=== PATIENT | female | born 1975 | race Caucasian/White ===

== ENCOUNTER → 2016-11-19 | Outpatient (CLI) | payer OTHER ==
[~2016-11-19] MED LIST: ACET-1138 PO; ACET-1222 PO; ASPEC81 PO; ASPI1TAB48 PO; CYCL10TA6 PO; EFF75 PO; FLUC100T4 PO; FLUO20CA36 PO; HYDR-5688 PO; HYDR200T5 PO; LEVO50TA6 PO; METO-649 PO; MISCCAP80 PO; MORP-157 PO; NXM/40 PO; ONDA8TAB6 PO; OXYC-57 PO; OXYC15TA89 PO; OXYSR10 PO; RXC5 PO; SENN-61 PO; SNK PO; SUMA100T16 PO; TOPI200T14 PO; TOPI200T6 PO
[2016-11-19 14:54] LABS: BASO % 0.4 %; BASO ABS # 0.02 K/uL (0-0.2); COMPLETE YES; EOS % 1.4 %; IG% 0.2 %; LYMPH % 26.5 %; MEAN CELL VOLUME 96.7 fL (80-100); MEAN CORPUSCULAR HEMOGLOBIN 32.3 pg (25-34); MEAN CORPUSCULAR HGB CONC 33.4 g/dl (32-36); MEAN PLATELET VOLUME 9.3 fL (7.4-10.4); MONO % 7.1 %; NEUT % 64.4 %; PLATELET COUNT 228 K/uL (130-400); RED BLOOD COUNT 3.62 M/uL (4.2-5.4); WHITE BLOOD COUNT 4.91 K/uL (4.8-10.8)
[2016-11-19 15:18] LABS: ALT/SGPT 21 U/L (12-78); AST/SGOT 13 U/L (15-37); BLOOD UREA NITROGEN 14 mg/dl (7-18); BUN/CREATININE RATIO 17.4 (10-20); CALCIUM 8.6 mg/dl (8.5-10.1); CARBON DIOXIDE 25 mmol/L (21-32); CHLORIDE 111 mmol/L (98-107); CREATININE 0.82 mg/dl (0.60-1.20); GLUCOSE 79 mg/dl (70-99); MAGNESIUM 2.3 mg/dl (1.8-2.4); POTASSIUM 4.1 mmol/L (3.5-5.1); SODIUM 142 mmol/L (136-145)
[2016-11-19 15:27] LABS: ALKALINE PHOSPHATASE 75 U/L (45-117); C-REACTIVE PROTEIN < 0.29 mg/dl (0-0.29); RHEUMATOID FACTOR < 10.0 U/mL (0-15)
[2016-11-19 16:38] LABS: LYME DISEASE AB IGG NEG (NEG); LYME DISEASE AB IGM NEG (NEG)
== END | disposition home or self-care (01) ==
LOC: C.LAB 12:57
PROVIDERS: ATTEND Family Medicine
DX: E03.4 Atrophy of thyroid (acquired) (principal); M25.50 Pain in unspecified joint; M15.0 Primary generalized (osteo)arthritis; R51 Headache

== ENCOUNTER 2016-12-16 08:51 | Inpatient (IN) | payer OTHER ==
[2016-11-19 13:25] VITALS: BMI 37.0
--- NOTE | 2016-11-19 14:07 | PAT Medication Instructions ---
Service Date Nov 19, 2016. Current Home Medication List Esomeprazole Magnesium (Nexium), 40 MG PO QAM Hydrocodone/Acetaminophen 5MG/325MG ([place] 5MG/325MG), 2 TABLETS PO BID PRN for Pain Levothyroxine Sodium (Levothyroxine Sodium), 1 TAB PO QAM Metoprolol Succinate (Toprolxl (Toprol-Xl), 200 MG PO HS Probiotic Product (Probiotic), 1 CAP PO QAM Sumatriptan Succinate (Imitrex), 100 MG PO PRN PRN for MIGRAINES Venlafaxine Hcl (Effexor), 75 MG PO QPM Medication Instructions For Your Scheduled Surgery Sumatriptan Succinate (Imitrex), 100 MG PO PRN PRN for MIGRAINES (only takes for migraines) - Hold the following medications the morning of surgery: Probiotic Product (Probiotic), 1 CAP PO QAM - Take the following medications the morning of surgery with a sip of water: Levothyroxine Sodium (Levothyroxine Sodium), 1 TAB PO QAM Esomeprazole Magnesium (Nexium), 40 MG PO QAM Hydrocodone/Acetaminophen 5MG/325MG ([place] 5MG/325MG), 2 TABLETS PO BID PRN for Pain (can take up to four hours prior to surgery if needed) - Take the following medications as scheduled the night before surgery: Venlafaxine Hcl (Effexor), 75 MG PO QPM Hydrocodone/Acetaminophen 5MG/325MG ([place] 5MG/325MG), 2 TABLETS PO BID PRN for Pain Topamax 200mg at bedtime If you have any questions please call us at [phone] or [phone] ( Laura) or [phone]
[2016-11-19 14:56] LABS: URINE APPEARANCE CLEAR (CLEAR); URINE BILIRUBIN NEG (NEG); URINE COLOR YELLOW; URINE NITRITE NEG (NEG); UROBILINOGEN NEG (NEG); ZZUR CULT IF INDIC CLEAN CATCH NO
--- NOTE | 2016-11-19 15:03 | DIAGNOSTIC IMAGING REPORT ---
CHEST 2 VIEWS ROUTINE CLINICAL HISTORY: PAT preoperative evaluation COMPARISON STUDY: 08/02/2014 FINDINGS: The bones soft tissues and hemidiaphragms are normal. The cardiomediastinal silhouette is normal. The lungs are clear. The pulmonary vasculature is normal. IMPRESSION: Negative chest. Electronically signed by: Bernard Norton M.D. 11/19/2016 3:01 PM Dictated Date/Time: 11/19/2016 3:00 PM
[2016-11-19 15:04] LABS: PROTHROMBIN TIME (PATIENT) 10.5 SECONDS (9.0-12.0)
[2016-11-19 15:20] LABS: MANUAL MICROSCOPIC REQUIRED? NO; REVIEW REQ? NO
[~2016-12-16] VITALS: Ht 167.6 cm; Wt 103.2 kg
[2016-12-16] VITALS (7 sets, daily range): BP systolic 100–114; BP diastolic 68–79; PULSE 66–78; TEMP 36.4–36.6; O2SAT 96–100; Ht 167.6 cm; Wt 103.2 kg
--- NOTE | 2016-12-16 04:28 | HISTORY & PHYSICAL EXAMINATION ---
DATE OF ADMISSION: 12/16/2016 CHIEF COMPLAINT: Left knee pain. HISTORY OF PRESENT ILLNESS: Ms. Gonzáles a 41-year-old female with left knee pain since 2016 after a fall. The patient had both medially and lateral retinacular tear as a result. She has had injections, bracing over the past year. She is unable to take anti-inflammatories due to peptic ulcer disease. She has failed conservative treatment and is scheduled for left knee replacement. PAST MEDICAL HISTORY: Migraine, thyroid disease, history of DVT in upper extremity in 2011, history of MRSA septicemia. She denies heart disease or diabetes. PAST SURGICAL HISTORY: Laparoscopic cholecystectomy, left knee arthroscopy, right knee arthroscopy, laparoscopic hysterectomy, D and C, ERCP and sphincterotomy. SOCIAL HISTORY: The patient denies alcohol or tobacco use. She lives in a ranch home. 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 FAMILY HISTORY: Negative for DVT. MEDICATIONS: Nexium 40 mg daily, Effexor XR 75 mg daily, Topamax 200 mg at bedtime, levothyroxine 75 mcg, probiotic, and hydrocodone p.r.n. ALLERGIES: SULFA AND VANCOMYCIN. REVIEW OF SYSTEMS: See HPI. Ten other systems reviewed, all negative. PHYSICAL EXAMINATION: VITAL SIGNS: Height 5 feet 5 inches, weight 225 pounds. BMI is 37. GENERAL: This is a well-developed, well-nourished female who is alert and oriented x3. Mood and affect are appropriate. HEENT: Normocephalic, atraumatic. Mucous membranes are moist and intact. NECK: Supple without lymphadenopathy. HEART: Regular rate and rhythm without murmurs, rubs or gallops. LUNGS: Clear to auscultation without wheezes or rhonchi. ABDOMEN: Soft and nontender. Bowel sounds are equal and active. EXTREMITIES: No ecchymosis, redness or warmth. She has neutral alignment. Range of motion is from 0-120 degrees with no laxity. She is neurovascularly intact with +5/5 strength. X-RAY EXAMINATION: AP and lateral views show joint space narrowing. She has large osteophyte formation. IMPRESSION: Degenerative joint disease, left knee. PLAN: The patient will be admitted for a left cruciate retaining knee replacement. We will plan on aspirin for DVT prophylaxis. The patient's PCP is Dr. Richardson in [place] and she is having outpatient physical therapy upon discharge.
[~2016-12-16 08:51] MED LIST changes: -ACET-1138 PO; -ACET-1222 PO; +ACETAMINOPHEN 500 MG TAB PO SCH; -ASPEC81 PO; -ASPI1TAB48 PO; +ATROPINE SULFATE 0.1 MG/ML 5ML SYR IV PRN; +BUPIVACAINE 0.25% 30 ML VIAL ONE; +BUPIVACAINE 0.5 % 5 MG/1 ML PF 10ML VIAL ONE; +CEFAZOLIN 2000 MG/60 ML D5W 60 ML IV SCH; -CYCL10TA6 PO; +DEXAMETHASONE 4 MG TAB PO SCH; +EpHEDrine SULFATE INJ 50 MG/ML AMP IV PRN; +FAMOTIDINE 20 MG TAB PO SCH; +FENTANYL CITRATE INJ 50 MCG/1 ML 2 ML VIAL IV PRN; -FLUC100T4 PO; -FLUO20CA36 PO; +GABAPENTIN 300 MG CAP PO SCH; -HYDR200T5 PO; +LACTATED RINGER'S 1000ML 1,000 ML IV SCH; +LACTATED RINGER'S 1000ML 500 ML IV ONE; +LACTATED RINGER'S 1000ML IV SCH; -METO-649 PO; +METOCLOPRAMIDE HCL 10 MG TAB PO SCH; -MORP-157 PO; -ONDA8TAB6 PO; +ONDANSETRON INJ 2 MG/ML 2 ML VIAL IV PRN; -OXYC-57 PO; -OXYC15TA89 PO; +OXYCODONE HCL 10 MG TABCR (OXYCONTIN) PO SCH; -OXYSR10 PO; +POLYMYXIN B SULFATE 100,000 UNITS in NSS 100ML IR SCH; +ROPIVACAINE 5MG/ML 30 ML 150 MG, BUPIVACAINE/EPINEPHR 0.5% MPF 30 ML, KETOROLAC TROMETH... INFIL SCH; -RXC5 PO; -SENN-61 PO; -SNK PO; -TOPI200T14 PO; +VANCOMYCIN INJ 400 MG in NSS 100ML IR SCH
[2016-12-16] MEDS ORDERED: HYDR200T5 PO (09:16)
[2016-12-16] MEDS ORDERED: FENTANYL CITRATE INJ 50 MCG/1 ML 2 ML VIAL ONE (09:27)
[2016-12-16] MEDS ORDERED: MIDAZOLAM HCL 1 MG/ML 2ML VIAL ONE ×2 (09:27)
--- NOTE | 2016-12-16 09:45 | History & Physical Bridge Note ---
H&P Re-Evaluation Bridge Note: I have examined the patient, reviewed the History & Physical and in the interval since the performance of the History & Physical I have noted the following changes of clinical significance: No changes noted
[2016-12-16] MEDS ORDERED: BUPIVACAINE/EPINEPHRINE 0.25% 1:200,000 30 ML VIAL ONE (10:42)
[2016-12-16] MEDS ORDERED: POVIDONE-IODINE OP SOLN 30 ML BTL ONE (10:42)
[2016-12-16] MEDS ORDERED: ORTHO JOINT ANESTHETIC ONE (10:42)
[2016-12-16] MEDS ORDERED: BACITRACIN 50000 UNIT VIAL ONE (10:43)
--- NOTE | 2016-12-16 12:46 | [facility] Post Operative Brief Note ---
Immediate Operative Summary Operative Date December 16, 2016. Pre-Operative Diagnosis Left knee - Degenerative joint disease Post-Operative Diagnosis Same Procedure(s) Performed Left knee arthroplasty Surgeon Dr Kory Reid Bottle Dealer Surgeon(s) Sundar Roth PA-C Estimated Blood Loss 5 Findings pf lat dz acl intact Specimens A. Left knee - bone and tissue Complication(s) None Disposition Recovery Room / PACU
[2016-12-16] MEDS ORDERED: SOD PHOSPHATE/SOD BIPHOSPHATE ENEMA 132 ML BTL PR PRN (13:00)
[2016-12-16] MEDS ORDERED: MAGNESIUM HYDROXIDE SUSP 30 ML UDC PO PRN (13:00)
[2016-12-16] MEDS ORDERED: METOCLOPRAMIDE HCL INJ 5 MG/ML 2 ML VIAL IV PRN (13:00)
[2016-12-16] MEDS ORDERED: ALUMINUM/MAGNESIUM/SIMETH (MAALOX MAX) 30 ML UDC PO PRN (13:00)
[2016-12-16] MEDS ORDERED: ZOLPIDEM TARTRATE 5 MG TAB PO PRN (13:00)
[2016-12-16] MEDS ORDERED: ONDANSETRON INJ 2 MG/ML 2 ML VIAL IV PRN (13:00)
[2016-12-16] MEDS ORDERED: BISACODYL 10 MG SUPP PR PRN (13:00)
[2016-12-16] MEDS ORDERED: DiphenhydrAMINE HCL 50 MG/ML VIAL IV PRN (13:00)
[2016-12-16] MEDS ORDERED: MoRPHine SULFATE 2 MG/ML CARP IV PRN (13:00)
[2016-12-16] MEDS ORDERED: DiphenhydrAMINE HCL 50 MG/ML VIAL ONE (13:05)
[2016-12-16] MEDS ORDERED: PROPOFOL IV EMULSION 10 MG/ML 20 ML VIAL IV ONE (13:05)
[2016-12-16] MEDS ORDERED: LIDOCAINE HCL 2% 2 ML VIAL (20MG/ML) ONE (13:05)
--- NOTE | 2016-12-16 14:09 | DIAGNOSTIC IMAGING REPORT ---
LEFT KNEE 2 VIEWS History: Left total knee arthroplasty. Degenerative arthritis. Postop. FINDINGS: The patient is status post a left total knee arthroplasty. The hardware is intact. No fracture or dislocation. Surgical drains are in place. IMPRESSION: Left total knee arthroplasty. No evidence for hardware complication. Electronically signed by: Jonh Linares M.D. 12/16/2016 2:08 PM Dictated Date/Time: 12/16/2016 2:07 PM
--- NOTE | 2016-12-16 14:11 | Anesthesiology Progress Note ---
Anesthesia Post Op Note Date & Time December 16, 2016 at 14:11 Vital Signs Pain Intensity: 0 Vital Signs Past 12 Hours Date Time Temp Pulse Resp B/P Pulse Ox O2 Delivery O2 Flow Rate FiO2 12/16/16 14:05 36.0 77 17 114/66 100 Nasal Cannula 2 12/16/16 13:55 79 14 115/74 100 Nasal Cannula 2 12/16/16 13:45 76 17 113/69 100 Nasal Cannula 2 12/16/16 13:35 83 17 114/65 100 Nasal Cannula 2 12/16/16 13:25 36.7 89 19 115/51 98 Nasal Cannula 2 12/16/16 09:16 36.5 66 16 110/79 100 Room Air Notes Mental Status: alert / awake / arousable, participated in evaluation Pt Amnestic to Procedure: Yes Nausea / Vomiting: adequately controlled Pain: adequately controlled Airway Patency, RR, SpO2: stable & adequate BP & HR: stable & adequate Hydration State: stable & adequate Neuraxial Anesthesia: was administered, sensory block is resolving Anesthetic Complications: no major complications apparent
[2016-12-16] MEDS: TRANEXAMIC ACID INJ 1,000 MG in SODIUM CHLORIDE 0.9% 100ML 100 ML IV SCH ×2 (15:04→15:05)
[2016-12-16] MEDS: D5W AND 1/2NSS + 20MEQ KCL 1,000 ML IV SCH (16:30)
[2016-12-16] MEDS: KETOROLAC TROMETHAMINE 30 MG/ML VIAL IV. SCH ×2 (16:31→21:26)
[2016-12-16] MEDS: OXYCODONE HCL IR 5 MG TAB (IMMEDIATE RELEASE) PO PRN (16:50)
[2016-12-16] MEDS: CLINDAMYCIN IV 600 MG in DEXTROSE 5% ADD-VANTAGE 50ML 50 ML IV SCH (18:01)
[2016-12-16] MEDS: ACETAMINOPHEN 500 MG TAB PO SCH (18:01)
[2016-12-16] MEDS: TRAMADOL HCL 50 MG TAB PO PRN (18:24)
[2016-12-16] MEDS ORDERED: TRANEXAMIC ACID INJ 1,000 MG in SODIUM CHLORIDE 0.9% 100ML 100 ML IV SCH (19:30)
[2016-12-16] MEDS: OXYCODONE HCL 10 MG TABCR (OXYCONTIN) PO SCH (20:27)
[2016-12-16] MEDS: ASPIRIN 81 MG ECTAB PO SCH (20:31)
[2016-12-16] MEDS ORDERED: TOPIRAMATE 100 MG TAB PO SCH (21:00)
[2016-12-16] MEDS ORDERED: VENLAFAXINE HCL 50 MG TAB PO SCH (21:00)
[2016-12-16] MEDS ORDERED: SENNA 8.6 MG TAB PO SCH (21:00)
[2016-12-17] MEDS: OXYCODONE HCL IR 5 MG TAB (IMMEDIATE RELEASE) PO PRN ×4 (00:14→15:24)
[2016-12-17] MEDS: ACETAMINOPHEN 500 MG TAB PO SCH ×2 (01:40→10:08)
[2016-12-17] MEDS: CLINDAMYCIN IV 600 MG in DEXTROSE 5% ADD-VANTAGE 50ML 50 ML IV SCH (01:40)
[2016-12-17] MEDS: D5W AND 1/2NSS + 20MEQ KCL 1,000 ML IV SCH ×2 (01:40→10:08)
--- NOTE | 2016-12-17 01:50 | OPERATIVE REPORT ---
DATE OF OPERATION: 12/16/2016 PREOPERATIVE DIAGNOSIS: Degenerative arthritis, left knee. POSTOPERATIVE DIAGNOSIS: Same. PROCEDURE: Left total knee using the bicruciate retaining knee system. SURGEON: Dr. Reid. ASSIGNMENT EDITOR: BETH Hernandez. ANESTHESIA: Spinal. TOURNIQUET TIME: 90 minutes at 275 mmHg. DRAINS: Hemovac x2. CULTURES: None. COMPLICATIONS: None. COMPONENTS USED: Gil \T\ Nephew Journey XR knee system: Femur size 5, tibial insert size 3 x 10 bilateral, patella size 35. NOTE: BETH Hernandez, was present and assisted throughout due to the complicated nature of this case. He helped with preparation and setup. He first assisted throughout and personally closed the capsule, subcutaneous and skin layers, and applied the postop dressing. DESCRIPTION: Following satisfactory spinal, the patient was supine. A tourniquet was placed. The lower extremity was prepared with ChloraPrep and draped sterilely. Following a surgical timeout, the tourniquet was inflated. A midline incision was made with a median parapatellar arthrotomy. The knee showed severe grade 4 changes of the patellofemoral and lateral compartments. The anterior cruciate ligament was intact. Using the patient-matched femoral block, distal femoral rotation and resection were set and completed. Extension gap was confirmed and the 4-in-1 block was used to finish preparation of the femur. Using the extramedullary alignment system, the tibial island was identified in map. The medial side was resected and the knee showed good balancing. Preparation of the lateral side was then completed including preparation of the island, the knee balanced nicely with 10 mm inserts. The patella was freehand cut and sized and tracked nicely. All trial components were removed. The capsule was prepared with the orthopedic cocktail, and after irrigation, the components were cemented using Simplex G cement. A Betadine soak was performed. After 5 minutes, the Betadine was irrigated. Two drains were placed. The arthrotomy was closed with a running suture of 0 V-Loc and reinforced with #1 Vicryl. The subcutaneous tissues with 2-0 Vicryl and the skin with a running subcuticular stitch of 3-0 V-Loc. Dermabond and a dry dressing were applied. The tourniquet was deflated. The patient was returned to her bed in stable condition. I attest to the content of the Intraoperative Record and any orders documented therein. Any exceptio ns are noted below.
[2016-12-17] MEDS: KETOROLAC TROMETHAMINE 30 MG/ML VIAL IV. SCH ×3 (03:40→15:27)
[2016-12-17 03:59] VITALS: BP 98/67; PULSE 55; TEMP 36.5; O2SAT 98
[2016-12-17 06:12] LABS: HEMATOCRIT 31.9 % (37-47); MEAN PLATELET VOLUME 9.5 fL (7.4-10.4); PLATELET COUNT 221 K/uL (130-400); RED BLOOD COUNT 3.19 M/uL (4.2-5.4); WHITE BLOOD COUNT 10.13 K/uL (4.8-10.8)
[2016-12-17 06:39] LABS: BUN/CREATININE RATIO 15.6 (10-20); CALCIUM 7.9 mg/dl (8.5-10.1); CREATININE 0.71 mg/dl (0.60-1.20)
[2016-12-17 07:50] VITALS: BP 98/64; PULSE 70; TEMP 36.6; O2SAT 99
[2016-12-17 08:03] VITALS: O2SAT 99
--- NOTE | 2016-12-17 08:15 | Anesthesiology Progress Note ---
Anesthesia Post Op Note Date & Time December 17, 2016 at 08:15 Vital Signs Pain Intensity: 2.0 Vital Signs Past 12 Hours Date Time Temp Pulse Resp B/P Pulse Ox O2 Delivery O2 Flow Rate FiO2 12/17/16 08:03 99 Room Air 12/17/16 07:50 36.6 70 20 98/64 99 Room Air 12/17/16 07:30 Room Air 12/17/16 03:59 36.5 55 15 98/67 98 Room Air 12/17/16 00:15 Room Air 12/16/16 23:11 36.6 78 15 100/68 99 Room Air Notes Mental Status: alert / awake / arousable, participated in evaluation Pt Amnestic to Procedure: Yes Nausea / Vomiting: adequately controlled Pain: adequately controlled Airway Patency, RR, SpO2: stable & adequate BP & HR: stable & adequate Hydration State: stable & adequate Neuraxial Anesthesia: sensory block resolved Anesthetic Complications: no major complications apparent
--- NOTE | 2016-12-17 08:16 | Orthopedic Progress Note ---
Orthopedic Progress Note Date of Service December 17, 2016. Subjective Post OP Day: 1 Reports: feeling well, Denies: SOB, calf pain, chest pain, light headedness, nausea / vomiting Objective calves soft nontender, N/V intact, dressing C/D/I, A&O x3, toes mobile, hemovac drainage (240/75cc) Date Time Temp Pulse Resp B/P Pulse Ox O2 Delivery O2 Flow Rate FiO2 12/17/16 08:03 99 Room Air 12/17/16 07:50 36.6 70 20 98/64 99 Room Air 12/17/16 07:30 Room Air 12/17/16 03:59 36.5 55 15 98/67 98 Room Air 12/17/16 00:15 Room Air 12/16/16 23:11 36.6 78 15 100/68 99 Room Air 12/16/16 17:27 76 16 113/73 97 Room Air 12/16/16 16:30 Room Air 12/16/16 16:30 Room Air 12/16/16 16:22 36.6 70 16 110/72 96 Room Air 12/16/16 15:36 36.5 73 16 107/72 100 Room Air 12/16/16 15:13 36.4 68 16 108/71 100 Room Air 12/16/16 14:30 36.6 114/72 100 Nasal Cannula 2.0 12/16/16 14:15 77 14 104/64 99 Nasal Cannula 2 12/16/16 14:05 36.0 77 17 114/66 100 Nasal Cannula 2 12/16/16 13:55 79 14 115/74 100 Nasal Cannula 2 12/16/16 13:45 76 17 113/69 100 Nasal Cannula 2 12/16/16 13:35 83 17 114/65 100 Nasal Cannula 2 12/16/16 13:25 36.7 89 19 115/51 98 Nasal Cannula 2 12/16/16 09:16 36.5 66 16 110/79 100 Room Air Laboratory Results 24 Hours: Test 12/17/16 05:50 Hematocrit 31.9 % Hemoglobin 10.2 g/dL Assessment & Plan Assessment: POD#1 sp left TKA- XR Inhouse Planning Pain Management: PO Tylenol, Oxy IR DVT Prophylaxis: TEDs, SCDs, ASA Discharge Planning Discharge Planning: home with oppt
[2016-12-17] MEDS ORDERED: ACET-1138 PO (08:18)
[2016-12-17] MEDS ORDERED: FLUC100T4 PO (08:18)
[2016-12-17] MEDS ORDERED: MORP-157 PO (08:18)
[2016-12-17] MEDS ORDERED: SNK PO (08:18)
[2016-12-17] MEDS ORDERED: RXC5 PO (08:18)
[2016-12-17] MEDS ORDERED: ONDA8TAB6 PO (08:18)
[2016-12-17] MEDS ORDERED: ASPEC81 PO (08:18)
--- NOTE | 2016-12-17 08:19 | Discharge Instructions ---
Discharge Instructions Date of Service December 17, 2016. Admission Reason for Admission: Left Knee Degenerative Arthritis Discharge Discharge Diagnosis / Problem: sp left TKA, cruciate retaining Discharge Goals Goal(s): Decrease discomfort, Improve function, Increase independence Activity Recommendations Activity Limitations: per Instructions/Follow-up section . Instructions / Follow-Up Instructions / Follow-Up ACTIVITY RECOMMENDATIONS: SELF CARE INSTRUCTIONS AFTER TOTAL KNEE REPLACEMENT A. You may need to continue a physical therapy program after discharge from the hospital. There are several options available to you. Your doctor will assist you in selecting the best one for you. 1. An out-patient facility 2 to 3 times a week for therapy or home therapy. 2. Continue working on all exercises taught to you in the hospital. Your goals should be to increase bending of your knee to 90 degrees and beyond and to fully straighten your knee. B. You may progress at your own pace from walking with a walker or crutches to a cane; then to no assistive devices. C. Make walking a part of your daily routine. Be up as much as comfortable with rest periods throughout the day. Rest with leg elevation is very important. Use the ice wrap frequently for the first 3-4 weeks. D. There are no restrictions on activities. You may ride in a car, shop, participate in clinical fellow and all social activities. E. Wear the long elastic stockings (SHARIF hose) 20 hours a day for 2 weeks after surgery. They can be removed several times a day for laundering and for a bath. F. You may shower, no tub baths until cleared by your doctor. SPECIAL CARE INSTRUCTIONS: VERY IMPORTANT TO READ AND REVIEW A. There are a few signs you need to watch for after you are home. Call [facility] if you notice any of the followin. Increased severe knee pain. Some pain is expected especially when you exercise. 2. Increased swelling in your leg or knee; pain or swelling of the calf muscle in either lower leg. 3. Any fluid drainage from the incision. 4. Shortness of breath or chest pain. B. Please call [facility] at if you have any concerns or questions about your operation or recovery. The doctor or his nurse will return your call promptly. C. You must take antibiotics before dental work, bladder, bowel or other surgery. Your doctor will provide you with a permanent care to carry describing this precaution. IMPORTANT: * REMEMBER TO TAKE ASPIRIN, 81 MG, TWICE DAILY FOR 4 WEEKS UNLESS OTHERWISE DIRECTED. THIS IS YOUR BLOOD THINNER. * HIGH RISK PATIENTS MAY BE PRESCRIBED A STRONGER BLOOD THINNER. THIS WILL BE PROVIDED AT DISCHARGE. * CALL IF INCREASED PAIN, REDNESS, DRAINAGE OR FEVER GREATER THAT 101. * WEAR SHARIF HOSE 20 HOURS PER DAY FOR 2 WEEKS. DERMABOND Prineo- This is a mesh tape dressing that is covered with glue. It should remain in place until the incision is properly healed, usually 10-14 days. This dressing is designed to naturally slough off. You may trim the excess mesh tape as it peels off. Incision may be briefly wet in a shower. Dry immediately by blotting with a clean, dry towel. Do not bath or swim until instructed by your doctor. Do not scratch, rub, or pick at the dressing. Do not apply any topical ointments or lotions until dressing is completely removed and/or instructed by your doctor. There may be a small piece of suture material at one end of your incision. Do not pull or trim this. If it is bothersome or catching on clothing, you may cover it with a band-aid. FOLLOW UP VISIT: If appointment is not already scheduled: Please call [facility] to make a follow-up appointment for 2 weeks after your surgery at . Current Hospital Diet Patient's current hospital diet: Regular Diet Discharge Diet Recommended Diet: Regular Diet Procedures Procedures Performed: Left knee arthroplasty by cruciate retaining Pending Studies Studies pending at discharge: no Medical Emergencies . Who to Call and When: Medical Emergencies: If at any time you feel your situation is an emergency, please call 911 immediately. . Non-Emergent Contact Non-Emergency issues call your: Surgeon . "Provider Documentation" section prepared by Elena Epperson. . VTE Core Measure Inpt VTE Proph given/why not?: Other Anticoagulation, T.E.Dennis Marcus, SCD's [place] Drug Monitoring Program Search Results: patient reviewed within database, no issues identified
[2016-12-17] MEDS ORDERED: LEVOTHYROXINE 50 MCG TAB PO SCH (08:30)
[2016-12-17] MEDS: ASPIRIN 81 MG ECTAB PO SCH (08:51)
[2016-12-17] MEDS: TRAMADOL HCL 50 MG TAB PO PRN (08:56)
[2016-12-17] MEDS: OXYCODONE HCL 10 MG TABCR (OXYCONTIN) PO SCH (08:56)
[2016-12-17] MEDS ORDERED: PANTOprazole SOD 40 MG TAB PO SCH (09:00)
[2016-12-17] MEDS ORDERED: MULTIVITAMIN TAB PO SCH (09:00)
[2016-12-17] MEDS ORDERED: LACTOBACILLUS ACIDOPHILUS (FLORANEX) TAB PO SCH (09:00)
[2016-12-17 11:36] VITALS: BP 98/67; PULSE 64; TEMP 36.6; O2SAT 100
[2016-12-17 14:55] VITALS: BP 98/62; PULSE 91; TEMP 36.6; O2SAT 96
[2016-12-17 16:56] VITALS: BP 98/62; PULSE 91; TEMP 36.6; O2SAT 96
--- NOTE | 2016-12-23 17:02 | DISCHARGE SUMMARY ---
DISCHARGE DIAGNOSIS: Degenerative joint disease left knee. SECONDARY DIAGNOSES: Migraine headaches, thyroid disease, history of DVT in the upper extremity in 2011, history of MRSA and septicemia. CONSULTS: None. COMPLICATIONS: None. PROCEDURES: Left total knee arthroplasty performed by Dr. Winston Reid on 12/16/2016. BRIEF HISTORY: As dictated in history and physical. HOSPITAL SUMMARY: The patient was admitted on the above date and had the above-noted surgery performed which she tolerated well. She remained stable during her hospital stay. Wound was benign. Calves were soft, nontender, neurovascularly intact. She had no complaints. Pain was controlled. Vital signs were stable. She was progressing well with physical therapy and it was felt that she could be discharged to home on 12/17/2016. For further review, please see chart. LAB AND X-RAY DATA: As per chart. DISCHARGE INSTRUCTIONS: The patient was discharged to home in satisfactory condition on 12/25/2016. DIET: Regular. ACTIVITY: Follow TK instruction sheets and special care instructions as noted and follow up with Dr. Kory Reid in 2 weeks. The patient to call for appointment if one has not been made for you. DISCHARGE MEDICATIONS: Acetaminophen 1000 mg p.o. q. 8 hours, aspirin 81 mg p.o. b.i.d., Diflucan 1 tab p.o. daily for 7 days, morphine sulfate 15 mg p.o. q. 12 hours, Zofran 8 mg p.o. q. 8 hours p.r.n. nausea, oxycodone 5-10 mg p.o. q. 4 hours p.r.n., senna 17.2 mg p.o. at bedtime. Resume taking Nexium 40 mg p.o. q.a.m., Plaquenil 200 mg p.o. b.i.d., levothyroxine 50 mcg p.o. q.a.m., probiotic 1 cap p.o. q.a.m., Imitrex 100 mg p.o. p.r.n. migraines, Topamax 200 mg p.o. at bedtime, Effexor 75 mg p.o. q.p.m. Stop taking [place].
== END 2016-12-17 17:55 | disposition home or self-care (01) | DRG 470 ==
LOC: ENRESERVTM → ENRESERVDT → C.ACU 08:51 → C.3E 09:05
PROVIDERS: ADMIT Orthopaedic Surgery; ATTEND Orthopaedic Surgery
PROC: 0SRD0J9 Replacement of Left Knee Joint with Synthetic Substitute, Cemented, Open Approach (ICD-10-PCS; principal; 2016-12-16 10:30)
DX: M17.12 Unilateral primary osteoarthritis, left knee (principal); R00.1 Bradycardia, unspecified; I95.89 Other hypotension; E07.9 Disorder of thyroid, unspecified; G43.909 Migraine, unspecified, not intractable, without status migrainosus; F41.9 Anxiety disorder, unspecified; F32.9 Major depressive disorder, single episode, unspecified; E66.9 Obesity, unspecified; Z68.37 Body mass index [BMI] 37.0-37.9, adult; Z86.718 Personal history of other venous thrombosis and embolism; Z86.14 Personal history of Methicillin resistant Staphylococcus aureus infection; Z79.899 Other long term (current) drug therapy; Z79.891 Long term (current) use of opiate analgesic

== ENCOUNTER → 2016-12-23 | Outpatient (CLI) | payer OTHER ==
[~2016-12-23] MED LIST changes: +ACET-1138 PO; +ACET-1222 PO; -ACETAMINOPHEN 500 MG TAB PO SCH; +ASPEC81 PO; +ASPI1TAB48 PO; -ATROPINE SULFATE 0.1 MG/ML 5ML SYR IV PRN; -BUPIVACAINE 0.25% 30 ML VIAL ONE; -BUPIVACAINE 0.5 % 5 MG/1 ML PF 10ML VIAL ONE; -CEFAZOLIN 2000 MG/60 ML D5W 60 ML IV SCH; -DEXAMETHASONE 4 MG TAB PO SCH; -EpHEDrine SULFATE INJ 50 MG/ML AMP IV PRN; -FAMOTIDINE 20 MG TAB PO SCH; -FENTANYL CITRATE INJ 50 MCG/1 ML 2 ML VIAL IV PRN; +FLUC100T4 PO; -GABAPENTIN 300 MG CAP PO SCH; -HYDR-5688 PO; +HYDR200T5 PO; -LACTATED RINGER'S 1000ML 1,000 ML IV SCH; -LACTATED RINGER'S 1000ML 500 ML IV ONE; -LACTATED RINGER'S 1000ML IV SCH; -METOCLOPRAMIDE HCL 10 MG TAB PO SCH; +MORP-157 PO; +ONDA8TAB6 PO; -ONDANSETRON INJ 2 MG/ML 2 ML VIAL IV PRN; +OXYC15TA89 PO; -OXYCODONE HCL 10 MG TABCR (OXYCONTIN) PO SCH; +OXYSR10 PO; -POLYMYXIN B SULFATE 100,000 UNITS in NSS 100ML IR SCH; -ROPIVACAINE 5MG/ML 30 ML 150 MG, BUPIVACAINE/EPINEPHR 0.5% MPF 30 ML, KETOROLAC TROMETH... INFIL SCH; +RXC5 PO; +SENN-61 PO; +SNK PO; -VANCOMYCIN INJ 400 MG in NSS 100ML IR SCH
--- NOTE | 2016-12-23 13:25 | DIAGNOSTIC IMAGING REPORT ---
ULTRASOUND LEFT VENOUS DOPP LOWER EXT UNILAT CLINICAL HISTORY: Left leg swelling COMPARISON STUDY: No previous studies for comparison. FINDINGS: Real-time and color flow Doppler imaging were performed. Flow was seen within the femoral, popliteal and calf veins with no intraluminal thrombus demonstrated. The saphenous vein is patent. IMPRESSION: No evidence of left lower extremity DVT. Electronically signed by: Domo Gomez M.D. 12/23/2016 1:24 PM Dictated Date/Time: 12/23/2016 1:23 PM
== END | disposition home or self-care (01) ==
PROVIDERS: ATTEND Orthopaedic Surgery
DX: M79.662 Pain in left lower leg (principal)

== ENCOUNTER 2016-12-24 23:10 | Inpatient (IN) | payer OTHER ==
[~2016-12-24] VITALS: Ht 167.6 cm; Wt 110.9 kg
[~2016-12-24 23:10] MED LIST changes: -ACET-1222 PO; -ASPI1TAB48 PO; -OXYC15TA89 PO; -OXYSR10 PO; -SENN-61 PO
[2016-12-24] MEDS ORDERED: ONDANSETRON INJ 2 MG/ML 2 ML VIAL IV STA (23:54)
[2016-12-24] MEDS ORDERED: FENTANYL CITRATE INJ 50 MCG/1 ML 2 ML VIAL IV STA (23:54)
--- NOTE | 2016-12-24 23:58 | EMERGENCY ROOM VISIT NOTE ---
History Report prepared by Jackie: Angie Roberts Under the Supervision of: Dr. John Mcallister D.O. First contact with patient: 23:43 Chief Complaint: LEG PAIN,LEG INJURY Stated Complaint: LEFT LEG, KNEE SWELLING/PAIN/REDNESS History of Present Illness The patient is a 41 year old female who presents to the Emergency Room with complaints of worsening left knee swelling starting 3 days ago. The patient had a left knee replacement on December [address] Reid. She was at physical therapy 5 days ago and the Hemovac accidentally came out. She reports the amount of drainage from the knee had not reduced to 100 cc at the time. She started having left leg swelling 3 days ago which has been worsening over time. She also reports worsening pain and erythema in the left lower leg. She has been taking the prescribed pain medications without relief. She denies any discharge from the surgical site. She had a Venous Doppler a few days ago which was negative. She also complains of thrush in her mouth. She was started on Nystatin today by her PCP. She denies fevers, chills, or any other complaints. Source of History: patient Onset: 3 days ago Position: knee (left) Quality: other (swelling) Timing: worsening Modifying Factors (Relieving): other (prescribed pain medications without relief) Associated Symptoms: No chills, No fevers Review of Systems See HPI for pertinent positives and negatives. A total of ten systems were reviewed and were otherwise negative. Past Medical & Surgical Surgical Problems: (1) Post-operative state Family History Cancer Diabetes mellitus FH: heart disease FHx: gallbladder disease Hypertension Social History Smoking Status: Never Smoker Drug Use: none Marital Status: Housing Status: lives with family Occupation Status: employed Current/Historical Medications Scheduled Aspirin (Aspirin Low Dose), 81 MG PO DAILY Esomeprazole Magnesium (Nexium), 40 MG PO QAM Hydroxychloroquine Sulfate (Plaquenil), 200 MG PO BID Levothyroxine Sodium (Levothyroxine Sodium), 75 MCG PO QAM Probiotic Product (Probiotic), 1 CAP PO QAM Senna (Senokot), 2 TABS PO HS Topiramate (Topamax), 1 TAB PO HS Venlafaxine Hcl (Effexor), 75 MG PO QPM Scheduled PRN Acetaminophen (Acetaminophen Extra Stren), 1,000 MG PO Q8 PRN for Pain Ondansetron Hcl (Zofran), 8 MG PO Q8 PRN for Nausea Oxycodone Hcl (Oxycontin), 5-10 MG PO Q4 PRN for Pain Sumatriptan Succinate (Imitrex), 100 MG PO PRN PRN for MIGRAINES Allergies Coded Allergies: Sulfa Drugs (Verified Allergy, Unknown, hives, 12/25/16) Vancomycin (Verified Adverse Reaction, Severe, red man syndrome, 12/25/16) Cephalexin (Unverified Adverse Reaction, Unknown, DIARRHEA, 12/25/16) Physical Exam Vital Signs Date Time Temp Pulse Resp B/P Pulse Ox O2 Delivery O2 Flow Rate FiO2 12/25/16 02:33 84 18 113/58 100 Room Air 12/25/16 00:58 82 20 109/54 98 Room Air 12/24/16 23:12 36.6 91 20 114/61 98 Room Air Physical Exam GENERAL: Awake, alert, well-appearing, in no distress HENT: Normocephalic, atraumatic. Dry mucous membranes. EYES: Normal conjunctiva. Sclera non-icteric. NECK: Supple. No nuchal rigidity. FROM. No JVD. RESPIRATORY: Clear to auscultation. CARDIAC: Regular rate, normal rhythm. Extremities warm and well perfused. Pulses equal. ABDOMEN: Soft, non-distended. No tenderness to palpation. No rebound or guarding. No masses. RECTAL: Deferred. MUSCULOSKELETAL: Chest examination reveals no tenderness. The back is symmetrical on inspection without obvious abnormality. There is no CVA tenderness to palpation. No joint edema. LOWER EXTREMITIES: Calves are equal size bilaterally and non-tender. No discoloration. left lower extremity surgical scar intact, area of erythema and tenderness to the anterior frances, neurovascularly intact distally, has range of motion with flexion at the knee. NEURO: Normal sensorium. No sensory or motor deficits noted. SKIN: No rash or jaundice noted. Medical Decision & Procedures ER Provider Diagnostic Interpretation: X-ray: Per my interpretation. KNEE X-RAY The prosthetic components are intact, slight soft tissue swelling, no obvious gas present, no fracture. US: Radiology results as stated below per my review and radiologist interpretation US VENOUS LEFT LOWER EXTREMITY No evidence of deep vein thrombosis. Edema noted within soft tissues of the calf. Left inguinal lymph nodes, likely reactive. Radiologist: Chano Nam MD Laboratory Results 12/24/16 23:43 Red Blood Count 3.06, Mean Corpuscular Volume 99.7, Mean Corpuscular Hemoglobin 32.7, Mean Corpuscular Hemoglobin Concent 32.8, Mean Platelet Volume 9.0, Neutrophils (%) (Auto) 52.0, Lymphocytes (%) (Auto) 27.4, Monocytes (%) (Auto) 15.0, Eosinophils (%) (Auto) 4.4, Basophils (%) (Auto) 0.6, Neutrophils # (Auto ) 2.71, Lymphocytes # (Auto) 1.43, Monocytes # (Auto) 0.78, Eosinophils # (Auto ) 0.23, Basophils # (Auto) 0.03 12/24/16 23:43 Test 12/24/16 23:43 12/24/16 23:55 White Blood Count 5.21 K/uL (4.8-10.8) Red Blood Count 3.06 M/uL (4.2-5.4) Hemoglobin 10.0 g/dL (12.0-16.0) Hematocrit 30.5 % (37-47) Mean Corpuscular Volume 99.7 fL (80-100) Mean Corpuscular Hemoglobin 32.7 pg (25-34) Mean Corpuscular Hemoglobin Concent 32.8 g/dl (32-36) Platelet Count 245 K/uL (130-400) Mean Platelet Volume 9.0 fL (7.4-10.4) Neutrophils (%) (Auto) 52.0 % Lymphocytes (%) (Auto) 27.4 % Monocytes (%) (Auto) 15.0 % Eosinophils (%) (Auto) 4.4 % Basophils (%) (Auto) 0.6 % Neutrophils # (Auto) 2.71 K/uL (1.4-6.5) Lymphocytes # (Auto) 1.43 K/uL (1.2-3.4) Monocytes # (Auto) 0.78 K/uL (0.11-0.59) Eosinophils # (Auto) 0.23 K/uL (0-0.5) Basophils # (Auto) 0.03 K/uL (0-0.2) RDW Standard Deviation 47.6 fL (36.4-46.3) RDW Coefficient of Variation 13.1 % (11.5-14.5) Immature Granulocyte % (Auto) 0.6 % Immature Granulocyte # (Auto) 0.03 K/uL (0.00-0.02) Erythrocyte Sedimentation Rate 51 mm/hr (0-21) Anion Gap 7.0 mmol/L (3-11) Est Creatinine Clear Calc Drug Dose 136.1 ml/min Estimated GFR () 126.5 Estimated GFR (Non- 109.1 BUN/Creatinine Ratio 21.2 (10-20) Calcium Level 8.2 mg/dl (8.5-10.1) C-Reactive Protein 5.09 mg/dl (0-0.29) Bedside Lactic Acid Venous 1.09 mmol/L (0.90-1.70) Laboratory results reviewed by me Medications Administered Medications (Trade) Dose Ordered Sig/Maru Route Start Time Stop Time Status Last Admin Dose Admin Fentanyl Citrate (Fentanyl Inj) 50 mcg NOW STAT IV 12/24/16 23:54 12/24/16 23:56 DC 12/25/16 00:00 50 MCG Ondansetron HCl (Zofran Inj) 4 mg NOW STAT IV 12/24/16 23:54 12/24/16 23:56 DC 12/24/16 23:59 4 MG Fentanyl Citrate (Fentanyl Inj) 50 mcg NOW ONCE IV 12/25/16 02:45 12/25/16 02:46 DC 12/25/16 02:46 50 MCG ED Course 2343: The patient was evaluated in room B12B. A complete history and physical exam was performed. 2354: Zofran Inj 4 mg IV, Fentanyl Inj 50 mcg IV 0245: Fentanyl Inj 50 mcg IV 0309: I discussed the patient's case with Dr. Reid, orthopedic surgeon with [facility]. 0313: Upon reexamination, the patient was resting comfortably. I discussed the test results and treatment plan with her. The patient will be evaluated for further management. Medical Decision Differential diagnosis includes but is not limited to cellulitis, localized reaction, allergic reaction, septic joint, DVT. Patient's ultrasound was negative for DVT, this case was discussed with Dr. Reid from orthopedics he will admit the patient and likely perform an arthrocentesis in the morning. I discussed the findings with the patient and the patient's friend at bedside. Patient did require opiates throughout emergency department evaluation Consults Time Called: [phone] Consulting Physician: Dr. Reid, orthopedic surgeon with [facility] Returned Call: 030 I discussed the patient's case with Dr. Reid, orthopedic surgeon with [facility]. Impression Primary Impression: Acute postoperative pain of left knee Additional Impression: Rule out septic joint Scribe Attestation The scribe's documentation has been prepared under my direction and personally reviewed by me in its entirety. I confirm that the note above accurately reflects all work, treatment, procedures, and medical decision making performed by me. Departure Information Dispostion Being Evaluated By Surgeon Kyle Martino M.D. (PCP) Patient Instructions My [facility] Problem Qualifiers
[2016-12-25 00:05] LABS: HEMATOCRIT 30.5 % (37-47); MEAN CELL VOLUME 99.7 fL (80-100); MEAN CORPUSCULAR HEMOGLOBIN 32.7 pg (25-34); MEAN CORPUSCULAR HGB CONC 32.8 g/dl (32-36); PLATELET COUNT 245 K/uL (130-400); RED BLOOD COUNT 3.06 M/uL (4.2-5.4); WHITE BLOOD COUNT 5.21 K/uL (4.8-10.8)
[2016-12-25 00:28] LABS: BASO % 0.6 %; BASO ABS # 0.03 K/uL (0-0.2); COMPLETE YES; EOS % 4.4 %; IG% 0.6 %; LYMPH % 27.4 %; LYMPH ABS # 1.43 K/uL (1.2-3.4)
[2016-12-25] MEDS ORDERED: ACET-1222 PO (00:28)
[2016-12-25 00:30] LABS: BUN/CREATININE RATIO 21.2 (10-20); C-REACTIVE PROTEIN 5.09 mg/dl (0-0.29); CALCIUM 8.2 mg/dl (8.5-10.1); CREATININE 0.7 mg/dl (0.60-1.20); POTASSIUM 3.9 mmol/L (3.5-5.1)
[2016-12-25] MEDS ORDERED: ASPI1TAB48 PO ×2 (00:30→08:32)
[2016-12-25] MEDS ORDERED: ONDA8TAB6 PO (00:32)
[2016-12-25] MEDS ORDERED: OXYC15TA89 PO (00:34)
[2016-12-25] MEDS ORDERED: SENN-61 PO (00:35)
[2016-12-25 02:33] VITALS: O2SAT 100
[2016-12-25] MEDS ORDERED: FENTANYL CITRATE INJ 50 MCG/1 ML 2 ML VIAL IV ONE (02:45)
[2016-12-25] MEDS ORDERED: NURSING VERBAL MED ORDER ONE (03:30)
[2016-12-25 04:10] VITALS: BP 120/81; PULSE 86; TEMP 36.8; O2SAT 100
[2016-12-25] MEDS ORDERED: SUMATRIPTAN SUCC TAB 100 MG TAB PO PRN (05:00)
[2016-12-25] MEDS ORDERED: ACETAMINOPHEN 500 MG TAB PO PRN (05:00)
[2016-12-25] MEDS ORDERED: ONDANSETRON 8 MG TAB PO PRN (05:00)
[2016-12-25 05:03] VITALS: BP 120/81; PULSE 86; TEMP 36.8; Ht 167.6 cm; Wt 110.9 kg
[2016-12-25] MEDS: OXYCODONE HCL IR 5 MG TAB (IMMEDIATE RELEASE) PO PRN ×2 (05:32→10:22)
[2016-12-25] MEDS ORDERED: LEVOTHYROXINE 75 MCG TAB PO SCH (06:00)
--- NOTE | 2016-12-25 06:42 | DIAGNOSTIC IMAGING REPORT ---
LEFT KNEE 3 VIEWS CLINICAL HISTORY: pain COMPARISON: None. DISCUSSION: Status post total joint replacement. Small joint effusion. Moderate generalized soft tissue edema. IMPRESSION: Total joint replacement. Small joint effusion. Nonspecific soft tissue edema Electronically signed by: Bernard Norton M.D. 12/25/2016 6:41 AM Dictated Date/Time: 12/25/2016 6:40 AM
--- NOTE | 2016-12-25 07:01 | DIAGNOSTIC IMAGING REPORT ---
LEFT LOWER EXTREMITY VENOUS DOPPLER HISTORY: Left leg pain post sx COMPARISON STUDY: Venous Doppler 12/23/2016 FINDINGS: There is normal compressibility, flow, and augmentation within the left lower extremity deep venous system. A 5.2 x 2.1 x 0.8 cm left inguinal lymph node which is likely reactive. IMPRESSION: No DVT within the left lower extremity. Electronically signed by: Jonh Linares M.D. 12/25/2016 7:00 AM Dictated Date/Time: 12/25/2016 6:59 AM
[2016-12-25 07:12] VITALS: BP 113/75; PULSE 86; TEMP 36.9; O2SAT 97
[2016-12-25] MEDS ORDERED: RXC5 PO (08:32)
[2016-12-25] MEDS ORDERED: OXYSR10 PO (08:32)
--- NOTE | 2016-12-25 08:34 | Discharge Instructions ---
Discharge Instructions Date of Service December 25, 2016. Admission Reason for Admission: Cellulitis Left Knee, S/P Knee Replacement Discharge Discharge Diagnosis / Problem: SP LEFT CRUCIATE RETAINING TKA Discharge Goals Goal(s): Decrease discomfort, Improve function, Increase independence Activity Recommendations Activity Limitations: per Instructions/Follow-up section . Instructions / Follow-Up Instructions / Follow-Up ACTIVITY RECOMMENDATIONS: SELF CARE INSTRUCTIONS AFTER TOTAL KNEE REPLACEMENT A. You may need to continue a physical therapy program after discharge from the hospital. There are several options available to you. Your doctor will assist you in selecting the best one for you. 1. An out-patient facility 2 to 3 times a week for therapy or home therapy. 2. Continue working on all exercises taught to you in the hospital. Your goals should be to increase bending of your knee to 90 degrees and beyond and to fully straighten your knee. B. You may progress at your own pace from walking with a walker or crutches to a cane; then to no assistive devices. C. Make walking a part of your daily routine. Be up as much as comfortable with rest periods throughout the day. Rest with leg elevation is very important. Use the ice wrap frequently for the first 3-4 weeks. D. There are no restrictions on activities. 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 E. Wear the long elastic stockings (SHARIF hose) 20 hours a day for 2 weeks after surgery. They can be removed several times a day for laundering and for a bath. F. You may shower, no tub baths until cleared by your doctor. SPECIAL CARE INSTRUCTIONS: VERY IMPORTANT TO READ AND REVIEW A. There are a few signs you need to watch for after you are home. Call [facility] if you notice any of the followin. Increased severe knee pain. Some pain is expected especially when you exercise. 2. Increased swelling in your leg or knee; pain or swelling of the calf muscle in either lower leg. 3. Any fluid drainage from the incision. 4. Shortness of breath or chest pain. B. Please call [facility] at if you have any concerns or questions about your operation or recovery. The doctor or his nurse will return your call promptly. C. You must take antibiotics before dental work, bladder, bowel or other surgery. Your doctor will provide you with a permanent care to carry describing this precaution. IMPORTANT: * REMEMBER TO TAKE ASPIRIN, 81 MG, TWICE DAILY FOR 4 WEEKS UNLESS OTHERWISE DIRECTED. THIS IS YOUR BLOOD THINNER. * HIGH RISK PATIENTS MAY BE PRESCRIBED A STRONGER BLOOD THINNER. THIS WILL BE PROVIDED AT DISCHARGE. * CALL IF INCREASED PAIN, REDNESS, DRAINAGE OR FEVER GREATER THAT 101. * WEAR SHARIF HOSE 20 HOURS PER DAY FOR 2 WEEKS. *RECOMMEND STRICT ELEVATION OF THE LLE THROUGH THE WEEKEND *CONTINUE TO USE ICE REGULARLY *MAY RESUME PT ON FRIDAY, GENTLE ROM, EDEMA CONTROL CALL IF INCREASED PAIN, SWELLING, REDNESS, FEVER. [phone] FOLLOW UP VISIT: If appointment is not already scheduled: (KEEP ORIGINAL 2 WEEK POST OP) Please call [facility] to make a follow-up appointment for 1 weeks after your surgery at . Current Hospital Diet Patient's current hospital diet: Regular Diet Discharge Diet Recommended Diet: Regular Diet Pending Studies Studies pending at discharge: no Medical Emergencies . Who to Call and When: Medical Emergencies: If at any time you feel your situation is an emergency, please call 911 immediately. . Non-Emergent Contact Non-Emergency issues call your: Surgeon . "Provider Documentation" section prepared by Elena Epperson. . VTE Core Measure Inpt VTE Proph given/why not?: Other Anticoagulation, T.ECarlos Marcus, SCD's [place] Drug Monitoring Program Search Results: patient reviewed within database, no issues identified
[2016-12-25] MEDS ORDERED: OXYCODONE HCL 10 MG TABCR (OXYCONTIN) PO ONE (08:45)
--- NOTE | 2016-12-25 08:49 | HISTORY & PHYSICAL EXAMINATION ---
DATE OF ADMISSION: 12/25/2016 CHIEF COMPLAINT: Left calf pain and swelling status post left knee replacement. HISTORY OF PRESENT ILLNESS: Ms. Gonzáles is a 41-year-old female who underwent an uncomplicated cruciate retaining left knee replacement on 12/16/[address] Reid. The patient was doing well initially. Starting on Friday she was having increased swelling over the knee. She called the office Friday and was sent for a Doppler ultrasound due to her previous history of DVT. Doppler was negative for DVT. The patient noticed some increased redness and warmth over the medial aspect of her proximal calf yesterday and presented to the Emergency Room for evaluation. The patient denies fever, chills, or increased knee pain. She was at 95 degrees of flexion at her most recent physical therapy session. She is taking Roxicodone for pain control. She was unable to tolerate the MS Contin a she is allergic to sulfa and is unable to take Celebrex. She is taking aspirin b.i.d. for DVT prophylaxis. PAST MEDICAL HISTORY: Migraines, thyroid disease, history of DVT upper extremity, history of MRSA. She denies heart disease or diabetes. PAST SURGICAL HISTORY: Laparoscopic cholecystectomy, left knee arthroscopy, right knee arthroscopy, laparoscopic hysterectomy, D\T\C, ERCP, sphincterotomy and left cruciate retaining knee replacement. SOCIAL HISTORY: The patient denies alcohol or tobacco use. She lives in a ranch home. 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 FAMILY HISTORY: Negative for DVT. MEDICATIONS: Nexium 40 mg daily, Effexor XR 75 mg daily, Topamax 200 mg, levothyroxine 75 mcg, probiotic, hydrocodone p.r.n. ALLERGIES: SULFA AND VANCOMYCIN. REVIEW OF SYSTEMS: See HPI. Ten other systems reviewed, all negative. PHYSICAL EXAMINATION: VITAL SIGNS: Height 5 foot 5, weight 225 pounds, BMI 37. GENERAL: This is a well-developed, well-nourished female who is alert and oriented x3. Mood and affect are appropriate. HEAD, EYES, EARS, NOSE, AND THROAT: Normocephalic, atraumatic. Mucous membranes are moist and intact. NECK: Supple without lymphadenopathy. HEART: Regular rate and rhythm without murmurs, rubs or gallops. LUNGS: Clear to auscultation without wheezes or rhonchi. ABDOMEN: Soft and nontender. Bowel sounds are equal and active. EXTREMITIES: No ecchymosis, redness are noted at this time. She has a midline incision that is well healed. Her Prineo dressing has come off. She has no opening. No wound drainage at this time. She has some mild warmth to touch, which would be consistent with her postoperative status. She has some mild distal edema, no pitting. Calf is currently soft and nontender. She is neurovascularly intact with +5/5 strength. She has full extension and can flex to about 90 degrees without pain. X-RAY EXAMINATION: AP and lateral views show a cruciate retaining knee replacement in adequate position. X-rays are not a true AP and lateral. IMPRESSION: Painful left knee replacement. PLAN: The patient is currently dos not have any evidence of cellulitis or septic joint. She is afebrile. She has no erythema. She has no pain with range of motion. I do not feel that her knee needs to be aspirated at this time. We are going to discharge her to home with some OxyContin instead of her MS Contin to see if she can tolerate this better. I recommended that she strictly elevate her lower extremity over the next few days. She should go to therapy on Friday for edema control. If she has any increased pain, fever, nausea, redness or an obvious increase in swelling she is to call our office. She should maintain her regular followup next week for a wound check.
[2016-12-25] MEDS ORDERED: ASPIRIN 81 MG ECTAB PO SCH (09:00)
[2016-12-25] MEDS ORDERED: HYDROXYCHLOROQUINE SULFATE 200 MG TAB PO SCH (09:00)
[2016-12-25] MEDS ORDERED: PANTOprazole SOD 40 MG TAB PO SCH (09:00)
[2016-12-25] MEDS ORDERED: LACTOBACILLUS ACIDOPHILUS (FLORANEX) TAB PO SCH (09:00)
[2016-12-25 09:37] VITALS: BP 113/75; PULSE 86; TEMP 36.9; O2SAT 97
[2016-12-25] MEDS ORDERED: TOPIRAMATE 100 MG TAB PO SCH (21:00)
[2016-12-25] MEDS ORDERED: VENLAFAXINE HCL XR 75 MG CAPXR PO SCH (21:00)
[2016-12-25] MEDS ORDERED: VENLAFAXINE HCL 37.5 MG TAB PO SCH (21:00)
[2016-12-25] MEDS ORDERED: DOCUSATE SODIUM/SENNA 50/8.6MG TAB PO SCH (21:00)
--- NOTE | 2016-12-30 15:09 | DISCHARGE SUMMARY ---
DISCHARGE DIAGNOSIS: Cellulitis, status post left knee replacement. SECONDARY DIAGNOSIS: None. CONSULTS: None. COMPLICATIONS: None. PROCEDURE: None. BRIEF HISTORY: Please see previously dictated history and physical. HOSPITAL SUMMARY: The patient was admitted on the above day after she developed increased redness and swelling to her left knee replacement. The patient was admitted for further evaluation and possible aspiration. The following morning when the patient was evaluated she had little to no erythema to the knee. Her incision was well healed. She had no drainage. Her Prineo dressing was removed. She had mild warmth to touch that was consistent with her postoperative status. She had mild distal edema. Calf was soft and nontender. She was neurovascularly intact. She had full extension. The patient was not tolerating her MS Contin at home. She was discharged to home on OxyContin; hopefully she will tolerate this better. She was discharged to home later that day in stable condition. For further review please see the chart. Lab, x-ray data and discharge instructions as per chart.
== END 2016-12-25 10:20 | disposition home or self-care (01) | DRG 561 ==
LOC: ENRESERVDT → ENRESERVTM → C.EDB 23:11 → C.MSW 12-25 03:33
PROVIDERS: ADMIT Orthopaedic Surgery; ATTEND Orthopaedic Surgery
DX: T84.84XA Pain due to internal orthopedic prosthetic devices, implants and grafts, initial encounter (principal); Z96.652 Presence of left artificial knee joint; G43.909 Migraine, unspecified, not intractable, without status migrainosus; E07.9 Disorder of thyroid, unspecified; Z79.899 Other long term (current) drug therapy; Z79.82 Long term (current) use of aspirin; Z86.718 Personal history of other venous thrombosis and embolism; Z86.14 Personal history of Methicillin resistant Staphylococcus aureus infection; Y83.1 Surgical operation with implant of artificial internal device as the cause of abnormal reaction of the patient, or of later complication, without mention of misadventure at the time of the procedure

== ENCOUNTER → 2017-08-06 | Day surgery (SDC) | payer OTHER ==
[2017-08-05 12:13] VITALS: Ht 167.6 cm; Wt 113.6 kg
[~2017-08-06] VITALS: Ht 167.6 cm; Wt 113.6 kg
[~2017-08-06] MED LIST changes: -ACET-1138 PO; +ACET-1222 PO; +AMOX875T PO; -ASPEC81 PO; +DOXY-300 PO; -EFF75 PO; +EFFSR75 PO; +FIDA1TAB PO; +FLUO20CA36 PO; +HYDR-4079 PO; -LEVO50TA6 PO; +LEVO75TA PO; +LEVO75TA5 PO; +LIDOCAINE HCL 2% 2 ML VIAL (20MG/ML) ONE; +LISD40CA PO; -MORP-157 PO; +MTR500 PO; +ONDA-170 PO; +ONDA-63 PO; -ONDA8TAB6 PO; +OSEL75CA16 PO; +PHEN37.5 PO; +PLQ200 PO; +PRD/1 PO; +PROM25TA16 PO; +PROPOFOL IV EMULSION 10 MG/ML 20 ML VIAL IV ONE; +RIZA1TAB7 PO; -RXC5 PO; -SNK PO; +SODIUM CHLORIDE 0.9% 500ML 500 ML IV ONE; +TOPI200T20 PO; +VENL150C2 PO; +ZVR400 PO
--- NOTE | 2017-08-06 13:58 | Endo History and Physical ---
History & Physical Date of Service: Aug 06, 2017. Chief Complaint: reflux and chronic diarrhea Referring Physician: Dr. Kyle Richardson History of Present Illness Chronic diarrhea; persistent heartburn Past Medical History Arthritis, Gynecological Problems, Depression Past Surgical History Hx Cardiac Surgery: No Hx Internal Defibrillator: No Hx Abdominal Surgery: Yes (shayna, ERCP x2, D&C, D&E, surg x2 for endometriosis , faheem) Hx Post-Op Nausea and Vomiting: No Hx Cancer Surgery: No Hx Thoracic Surgery: No Hx Orthopedic: Yes (L TKA, ) Hx Urinary Tract Surgery: No Family History None Social History Smoking Status: Never Smoker Hx Substance Use: No Hx Alcohol Use: No Allergies Coded Allergies: Sulfa Drugs (Verified Allergy, Unknown, hives, 08/05/17) Vancomycin (Verified Adverse Reaction, Severe, red man syndrome, 08/05/17) Cephalexin (Verified Adverse Reaction, Unknown, DIARRHEA, 08/06/17) Current Medications Reported Home Medications Medications Dose Route/Sig Max Daily Dose Days Date Category Dose Instructions Prednisone 1 Mg Tab 2 Mg PO QAM 08/05/17 Reported on tappering dose - rhuematoglist Effexor Xr (Venlafaxine Hcl) 150 Mg Cap 1 Cap PO QAM 08/05/17 Reported Synthroid (Levothyroxine Sodium) 75 Mcg Tab 75 Mcg PO QAM 08/05/17 Reported Zofran (Ondansetron HCl) 8 Mg Tab 8 Mg PO Q8 PRN 12/25/16 Reported Acetaminophen Extra Stren (Acetaminophen) 500 Mg Tab 1,000 Mg PO Q8 PRN 12/25/16 Reported Plaquenil (Hydroxychloroquine Sulfate) 200 Mg Tab 200 Mg PO BID 12/16/16 Reported Topamax (Topiramate) 200 Mg Tab 300 Mg PO HS 11/19/16 Reported Imitrex (Sumatriptan Succinate) 100 Mg Tab 100 Mg PO PRN PRN 11/19/16 Reported Probiotic (Probiotic Product) 1 Cap Cap 1 Cap PO QAM 11/19/16 Reported Nexium (Esomeprazole Magnesium) 40 Mg Capcr 40 Mg PO QAM 07/25/15 Reported Vital Signs Weight (Kilograms): 113.64 Height (Feet): 5 Height (Inches): 6 Date Time Temp Pulse Resp B/P (MAP) Pulse Ox O2 Delivery O2 Flow Rate FiO2 08/06/17 13:20 36.5 78 20 137/78 (97) 98 Room Air Physical Exam General Appearance: WD/WN, no apparent distress Respiratory/Chest: Auscultation: breath sounds normal, no wheezing Cardiovascular: Heart Auscultation: RRR Abdomen: Inspection & Palpation: soft, no tenderness, guarding & rebound Assessment and Plan Cleared for EGD and colonoscopy.
--- NOTE | 2017-08-06 14:22 | GI REPORT ---
Procedure Date: 08/06/2017 1:30 PM Procedure: Upper GI endoscopy Indications: Heartburn, Diarrhea Medicines: Monitored Anesthesia Care Complications: No immediate complications. Estimated blood loss: None. Estimated Blood Loss: Estimated blood loss: none. Procedure: Pre-Anesthesia Assessment: - Prior to the procedure, a History and Physical was performed, and patient medications, allergies and sensitivities were reviewed. The patient's tolerance of previous anesthesia was reviewed. - ASA Grade Assessment: II - A patient with mild systemic disease. After obtaining informed consent, the endoscope was passed under direct vision. Throughout the procedure, the patient's blood pressure, pulse, and oxygen saturations were monitored continuously. The Scope was introduced through the mouth, and advanced to the third part of the duodenum. Small bowel enteroscopy was deemed necessary. The upper GI endoscopy was accomplished with ease. The patient tolerated the procedure well. Findings: Punctate white exudate consistent with Mikayla esophagitis with no bleeding was found in the middle and upper third of the esophagus. Biopsies were taken with a cold forceps for histology. Cells for cytology were obtained by brushing. The Z-line was regular and was found 39 cm from the incisors. Biopsies were taken with a cold forceps for histology. A small sliding hiatal hernia was present. A small amount of food (residue) was found on the greater curvature of the stomach. Normal mucosa was found in the entire examined stomach. Biopsies were taken with a cold forceps for Helicobacter pylori testing. The examined duodenum was normal. Biopsies for histology were taken with a cold forceps for evaluation of celiac disease. Verification of patient identification for the specimens was done by the physician and nurse using the patient's name, date and medical record number. Impression: - Mikayla candidiasis esophagitis. Biopsied. Cells for cytology obtained. - Z-line regular, 39 cm from the incisors. Biopsied. - Small sliding hiatal hernia. - A small amount of food (residue) in the stomach. - Normal mucosa was found in the entire stomach. Biopsied. - Normal examined duodenum. Biopsied. Recommendation: - Perform a colonoscopy today. Teo Oliver M.D. Teo Oliver MD 08/06/2017 2:22:09 PM This report has been signed electronically. Note Initiated On: 08/06/2017 1:30 PM I attest to the content of the Intraoperative Record and orders documented therein, exceptions below
--- NOTE | 2017-08-06 14:45 | GI REPORT ---
Procedure Date: 08/06/2017 2:15 PM Procedure: Colonoscopy Indications: Chronic diarrhea Medicines: Monitored Anesthesia Care Complications: No immediate complications. Estimated blood loss: None. Estimated Blood Loss: Estimated blood loss: none. Procedure: Pre-Anesthesia Assessment: - Prior to the procedure, a History and Physical was performed, and patient medications, allergies and sensitivities were reviewed. The patient's tolerance of previous anesthesia was reviewed. - ASA Grade Assessment: II - A patient with mild systemic disease. After I obtained informed consent, the scope was passed under direct vision. Throughout the procedure, the patient's blood pressure, pulse, and oxygen saturations were monitored continuously. The Scope was introduced through the anus and advanced to the terminal ileum, with identification of the appendiceal orifice and IC valve. The colonoscopy was performed without difficulty. The patient tolerated the procedure well. The quality of the bowel preparation was fair. The bowel preparation used was split dose MIralax. Findings: Normal mucosa was found in the entire colon. Biopsies for histology were taken with a cold forceps from the entire colon for evaluation of microscopic colitis. Fluid aspiration was performed through the scope suction channel. The amount of fluid collected was 10 mL. Sample(s) were sent for bacterial cultures, Clostridium difficile and ova and parasites. The terminal ileum appeared normal. Impression: - Preparation of the colon was fair. - Normal mucosa in the entire examined colon. Biopsied. Fluid aspiration performed. - The examined portion of the ileum was normal. Recommendation: - Tapering course of fidaxomycin - Discharge patient to home (with escort). Teo Oliver M.D. Teo Oliver MD 08/06/2017 2:44:52 PM This report has been signed electronically. Note Initiated On: 08/06/2017 2:15 PM I attest to the content of the Intraoperative Record and orders documented therein, exceptions below
--- NOTE | 2017-08-06 14:51 | Anesthesiology Progress Note ---
Anesthesia Post Op Note Date & Time Aug 06, 2017 at 14:51 Vital Signs Pain Intensity: 2 Vital Signs Past 12 Hours Date Time Temp Pulse Resp B/P (MAP) Pulse Ox O2 Delivery O2 Flow Rate FiO2 08/06/17 13:20 36.5 78 20 137/78 (97) 98 Room Air Notes Mental Status: alert / awake / arousable, participated in evaluation Pt Amnestic to Procedure: Yes Nausea / Vomiting: adequately controlled Pain: adequately controlled Airway Patency, RR, SpO2: stable & adequate BP & HR: stable & adequate Hydration State: stable & adequate Anesthetic Complications: no major complications apparent
--- NOTE | 2017-08-06 14:54 | Discharge Instructions ---
Endoscopy Patient Instructions Date / Procedure(s) Performed Aug 06, 2017. Colonoscopy, EGD Allergy Information Coded Allergies: Sulfa Drugs (Verified Allergy, Unknown, hives, 08/05/17) Vancomycin (Verified Adverse Reaction, Severe, red man syndrome, 08/05/17) Cephalexin (Verified Adverse Reaction, Unknown, DIARRHEA, 08/06/17) Discharge Date / Findings Aug 06, 2017. Mikayla esophagitis, Normal mucosa colon, biopsies and cultures pending. Medication Instructions Restart Stopped Medication(s): Restart all medications today. Take fidaxomycin one every other day for ten days, then every third day for three weeks. Take probiotic (Florastor, Saccromyces boulardii) twice a day for two months. Provider Instructions Activity Restrictions - No exercising or heavy lifting for 24 hours. - Do not drink alcohol the day of the procedure. - Do not drive a car or operate machinery until the day after the procedure. - Do not make any important decisions or sign important papers in 24 hours after the procedure. Following Day: - Return to full activity which may include returning to work/school. Diet Start your diet with liquids and light foods (jello, soup, juice, toast). Then eat your usual diet if not nauseated. Treatment For Common After Affects For mild abdominal pain, bloating, or excessive gas: - Rest - Eat lightly - Lie on right side Follow-Up Information Follow-up with Dr. Kyle Richardson as scheduled Anesthesia Information What You Should Know You have had a procedure that required some medicine to reduce anxiety and discomfort. This treatment is called moderate sedation. After receiving the treatment, you may be sleepy, but you will be able to breathe on your own. The effects of the treatment may last for several hours. Follow these instructions along with Activity/Diet recommendations noted above: * Do NOT do anything where dizziness or clumsiness would be dangerous. * Rest quietly at home today, then you can be up and about tomorrow. * Have a responsible person stay with you the rest of today. * You may have had an I.V. today. If so, you may take the dressing off later today. Recommendations Call your doctor if: * Trouble breathing * Continuous vomiting for more than 24 hours * Temperature above 101 degrees * Severe abdominal pain or bloating * Pain not relieved by pain medicine ordered * There is increased drainage or redness from any incision * A large amount of rectal bleeding greater than 2-3 tablespoons. (If you had a polyp/s removed or have hemorrhoids, a small amount of blood - from the rectum is to be expected.) * You have any unanswered questions or concerns. IN THE EVENT OF A SERIOUS EMERGENCY, GO TO THE NEAREST EMERGENCY ROOM Your discharge instructions were prepared by provider Teo Oliver. Patient Instructions Signature Page Brenda Gonzáles Patient (or Guardian) Signature/Date: I have read and understand the instructions given to me by my caregivers. Caregiver/RN/Doctor Signature/Date: The above-named patient and/or guardian has received patient instructions on this date. + Original Patient Signature Page (only) stays with chart. Please make copy for patient.
[2017-08-06 15:12] VITALS: BP 114/76; PULSE 72; O2SAT 99
== END | disposition home or self-care (01) ==
LOC: C.GI 13:01
PROVIDERS: ATTEND Internal Medicine Gastroenterology
DX: K52.9 Noninfective gastroenteritis and colitis, unspecified (principal); R12 Heartburn; K44.9 Diaphragmatic hernia without obstruction or gangrene; K21.9 Gastro-esophageal reflux disease without esophagitis; F32.9 Major depressive disorder, single episode, unspecified; Z90.49 Acquired absence of other specified parts of digestive tract; Z98.890 Other specified postprocedural states; Z96.652 Presence of left artificial knee joint; E66.9 Obesity, unspecified; Z68.41 Body mass index [BMI] 40.0-44.9, adult; Z88.1 Allergy status to other antibiotic agents; Z88.2 Allergy status to sulfonamides

== ENCOUNTER 2017-08-24 20:57 | Emergency (ER) | payer OTHER ==
[~2017-08-24] VITALS: Ht 167.6 cm; Wt 119.1 kg
[~2017-08-24 20:57] MED LIST changes: -ACET-1222 PO; -AMOX875T PO; -DOXY-300 PO; -EFFSR75 PO; -FIDA1TAB PO; -FLUC100T4 PO; -FLUO20CA36 PO; -HYDR-4079 PO; -LEVO75TA5 PO; -LIDOCAINE HCL 2% 2 ML VIAL (20MG/ML) ONE; -LISD40CA PO; -MISCCAP80 PO; -MTR500 PO; -NXM/40 PO; -ONDA-170 PO; -ONDA-63 PO; +ONDA8TAB6 PO; -OSEL75CA16 PO; -PHEN37.5 PO; -PLQ200 PO; -PROM25TA16 PO; -PROPOFOL IV EMULSION 10 MG/ML 20 ML VIAL IV ONE; -RIZA1TAB7 PO; -SODIUM CHLORIDE 0.9% 500ML 500 ML IV ONE; -TOPI200T20 PO; +VENL150C PO; -VENL150C2 PO; -ZVR400 PO
[2017-08-24 21:02] VITALS: TEMP 36.8; Ht 167.6 cm; Wt 119.1 kg
[2017-08-24] MEDS ORDERED: AMPICILLIN/SULBACTAM SOD INJ 3,000 MG in SODIUM CHLORIDE 0.9% 100ML 100 ML IV STA (21:54)
[2017-08-24] MEDS ORDERED: KETOROLAC TROMETHAMINE 30 MG/ML VIAL IV STA (21:54)
[2017-08-24] MEDS ORDERED: MAGIC SWIZZLE PO ONE (22:00)
[2017-08-24] MEDS ORDERED: MoRPHine SULFATE 4 MG/ML 1 ML CARP\\VIAL IV ONE (22:00)
[2017-08-24] MEDS ORDERED: SODIUM CHLORIDE 0.9% 1000ML 1,000 ML, SODIUM CHLORIDE 0.9% 1000ML 1,000 ML IV ONE (22:00)
[2017-08-24 22:28] VITALS: O2SAT 100
[2017-08-24 22:33] LABS: HEMATOCRIT 33.1 % (37-47); HEMOGLOBIN 10.3 g/dL (12.0-16.0); MEAN CELL VOLUME 89.2 fL (80-100); MEAN CORPUSCULAR HEMOGLOBIN 27.8 pg (25-34); MEAN CORPUSCULAR HGB CONC 31.1 g/dl (32-36); MEAN PLATELET VOLUME 9.6 fL (7.4-10.4); PLATELET COUNT 172 K/uL (130-400); RED CELL DISTRIBUTION WIDTH CV 15.5 % (11.5-14.5); RED CELL DISTRIBUTION WIDTH SD 50.5 fL (36.4-46.3); WHITE BLOOD COUNT 3.45 K/uL (4.8-10.8)
[2017-08-24 22:51] LABS: ALBUMIN 3.2 gm/dl (3.4-5.0); CALCIUM 8.4 mg/dl (8.5-10.1); CREATININE 0.71 mg/dl (0.60-1.20); POTASSIUM 3.6 mmol/L (3.5-5.1)
[2017-08-24 22:53] LABS: BASO % 0.3 %; BASO ABS # 0.01 K/uL (0-0.2); IG# 0.02 K/uL (0.00-0.02); LYMPH % 24.9 %; LYMPH ABS # 0.86 K/uL (1.2-3.4); MONO % 12.8 %; MONO ABS # 0.44 K/uL (0.11-0.59); NEUT % 61.4 %; NEUT ABS # 2.12 K/uL (1.4-6.5)
[2017-08-24 22:54] LABS: TOTAL PROTEIN 7.2 gm/dl (6.4-8.2)
[2017-08-24] MEDS ORDERED: AMOX875T PO (23:35)
[2017-08-24] MEDS ORDERED: NORCO 5/325MG HOME PACK PO ONE (23:45)
[2017-08-25 00:04] VITALS: BP 115/68; PULSE 78; O2SAT 99
[2017-08-25] MEDS ORDERED: ACET-1222 PO (00:28)
[2017-08-25] MEDS ORDERED: MISCCAP80 PO (13:24)
[2017-08-25] MEDS ORDERED: NXM/40 PO (20:18)
[2017-08-25] MEDS ORDERED: FLUC100T4 PO (21:53)
[2017-08-25] MEDS ORDERED: RIZA1TAB7 PO (22:20)
[2017-08-25] MEDS ORDERED: PHEN37.5 PO (22:20)
[2017-08-25] MEDS ORDERED: EFFSR75 PO (22:20)
[2017-08-25] MEDS ORDERED: MTR500 PO (22:20)
[2017-08-25] MEDS ORDERED: PROM25TA16 PO (22:20)
[2017-08-25] MEDS ORDERED: OSEL75CA16 PO (22:20)
[2017-08-25] MEDS ORDERED: FLUO20CA36 PO (22:20)
[2017-08-25] MEDS ORDERED: LEVO75TA5 PO (22:20)
[2017-08-25] MEDS ORDERED: LISD40CA PO (22:20)
[2017-08-25] MEDS ORDERED: ONDA-63 PO (22:20)
[2017-08-25] MEDS ORDERED: HYDR-4079 PO (22:20)
[2017-08-25] MEDS ORDERED: PLQ200 PO (22:25)
[2017-08-25] MEDS ORDERED: TOPI200T20 PO (22:25)
--- NOTE | 2017-08-25 22:31 | EMERGENCY ROOM VISIT NOTE ---
History First contact with patient: 21:41 Chief Complaint: FEVER Stated Complaint: MOUTH ULCERS,FEVER,DIFFICULTY SWALLOWING History of Present Illness The patient is a 41 year old female who presents to the Emergency Room with complaints of fever, chills, mouth pain, and infection of her right thumb. The patient states that she has had the mouth symptoms for the past 3 or 4 days and has been using mouthwash prescribed by her primary doctor without relief of symptoms. She is also on day 3 of Tamiflu. 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 She has been running a fever and is attempting to take Advil and Tylenol, however her mouth discomfort makes this more difficult. She is forcing fluids to remain hydrated, but eating is difficult. The patient is not have chest pain, chest tightness, shortness of breath. She reports having a paronychia/ingrown nail of her right thumb sometime last week, and the ingrowing part was cut down. She has now developed redness around the thumb as well as some pain into the right wrist. The patient rates her overall discomfort a 5/10. Review of Systems More than 10 systems were reviewed and otherwise negative with the exception of history of present illness. Past Medical/Surgical History Surgical Problems: (1) Post-operative state Family History Cancer Diabetes mellitus FH: heart disease FHx: gallbladder disease Hypertension Social History Smoking Status: Never Smoker Drug Use: none Marital Status: Housing Status: lives with family Occupation Status: employed Current/Historical Medications Scheduled Amoxicillin & Pot Clavulanate (Augmentin 875-125 mg), 1 TAB PO BID Esomeprazole Magnesium (Nexium), 40 MG PO QAM Fluconazole (Diflucan), 100 MG PO DAILY Hydroxychloroquine Sulfate (Plaquenil), 200 MG PO BID Levothyroxine Sodium (Synthroid), 75 MCG PO QAM Probiotic Product (Probiotic), 1 CAP PO QAM Topiramate (Topamax), 300 MG PO HS Scheduled PRN Acetaminophen (Acetaminophen Extra Stren), 1,000 MG PO Q8 PRN for Pain Ondansetron Hcl (Zofran), 8 MG PO Q8 PRN for Nausea Sumatriptan Succinate (Imitrex), 100 MG PO UD PRN for Migraine Physical Exam Vital Signs Date Time Temp Pulse Resp B/P (MAP) Pulse Ox O2 Delivery O2 Flow Rate FiO2 08/25/17 00:04 78 16 115/68 99 Room Air 08/24/17 23:10 70 18 100 Room Air 08/24/17 22:43 68 08/24/17 22:33 69 18 121/80 100 Room Air 08/24/17 22:28 100 Room Air 08/24/17 21:02 36.8 82 18 123/67 91 Room Air Physical Exam VITALS: Vitals are noted on the nurse's note and reviewed by myself. Vital signs stable. GENERAL: Well-developed, well-nourished, white female, who appears mildly ill but nontoxic HEAD: Normocephalic atraumatic. EARS: External ear normal. External auditory canals clear, tympanic membranes pearly hoang without erythema or effusion bilaterally. EYES: Pupils equal round and reactive to light and accommodation. Conjunctivae without injection, sclerae without icterus. Extraocular movements intact. NOSE: Patent, turbinates without inflammation or discharge. MOUTH: Diffuse shallow ulcerations appreciated throughout the oropharynx. There is slight posterior pharyngeal erythema without evidence of abscess. Uvula is midline. NECK: Supple without nuchal rigidity. No lymphadenopathy. No thyromegaly. Cervical spine is nontender. HEART: Regular rate and rhythm without murmurs gallops or rubs. LUNGS: Clear to auscultation bilaterally without wheezes, rales or rhonchi. No retractions or accessory muscle use. SKIN: The skin was with erythema and edema along the medial aspect of the right posterior thumb. The medial fingernail appears to have been cut from previous ingrown nail. The area appears with mild cellulitis extending into the posterior right hand. There may be mild streaking down into the wrist. The patient does have full sensation and range of motion of the hand. Turf Keeper strength is 5/5. No obvious abscess or drainable collection noted. Medical Decision & Procedures Laboratory Results 08/24/17 22:08 Red Blood Count 3.71, Mean Corpuscular Volume 89.2, Mean Corpuscular Hemoglobin 27.8, Mean Corpuscular Hemoglobin Concent 31.1, Mean Platelet Volume 9.6, Neutrophils (%) (Auto) 61.4, Lymphocytes (%) (Auto) 24.9, Monocytes (%) (Auto) 12.8, Eosinophils (%) (Auto) 0.0, Basophils (%) (Auto) 0.3, Neutrophils # (Auto ) 2.12, Lymphocytes # (Auto) 0.86, Monocytes # (Auto) 0.44, Eosinophils # (Auto ) 0.00, Basophils # (Auto) 0.01 08/24/17 22:08 Test 08/24/17 22:08 08/24/17 22:15 08/24/17 22:24 White Blood Count 3.45 K/uL (4.8-10.8) Red Blood Count 3.71 M/uL (4.2-5.4) Hemoglobin 10.3 g/dL (12.0-16.0) Hematocrit 33.1 % (37-47) Mean Corpuscular Volume 89.2 fL (80-100) Mean Corpuscular Hemoglobin 27.8 pg (25-34) Mean Corpuscular Hemoglobin Concent 31.1 g/dl (32-36) Platelet Count 172 K/uL (130-400) Mean Platelet Volume 9.6 fL (7.4-10.4) Neutrophils (%) (Auto) 61.4 % Lymphocytes (%) (Auto) 24.9 % Monocytes (%) (Auto) 12.8 % Eosinophils (%) (Auto) 0.0 % Basophils (%) (Auto) 0.3 % Neutrophils # (Auto) 2.12 K/uL (1.4-6.5) Lymphocytes # (Auto) 0.86 K/uL (1.2-3.4) Monocytes # (Auto) 0.44 K/uL (0.11-0.59) Eosinophils # (Auto) 0.00 K/uL (0-0.5) Basophils # (Auto) 0.01 K/uL (0-0.2) RDW Standard Deviation 50.5 fL (36.4-46.3) RDW Coefficient of Variation 15.5 % (11.5-14.5) Immature Granulocyte % (Auto) 0.6 % Immature Granulocyte # (Auto) 0.02 K/uL (0.00-0.02) Anion Gap 9.0 mmol/L (3-11) Est Creatinine Clear Calc Drug Dose 139.7 ml/min Estimated GFR () 124.4 Estimated GFR (Non- 107.3 BUN/Creatinine Ratio 12.1 (10-20) Calcium Level 8.4 mg/dl (8.5-10.1) Total Bilirubin 0.2 mg/dl (0.2-1) Aspartate Amino Transf (AST/SGOT) 53 U/L (15-37) Alanine Aminotransferase (ALT/SGPT) 53 U/L (12-78) Alkaline Phosphatase 162 U/L (45-117) Total Protein 7.2 gm/dl (6.4-8.2) Albumin 3.2 gm/dl (3.4-5.0) Globulin 4.0 gm/dl (2.5-4.0) Albumin/Globulin Ratio 0.8 (0.9-2) Urine Color YELLOW Urine Appearance CLEAR (CLEAR) Urine pH 5.0 (4.5-7.5) Urine Specific [place] 1.023 (1.000-1.030) Urine Protein NEG (NEG) Urine Glucose (UA) NEG (NEG) Urine Ketones NEG (NEG) Urine Occult Blood NEG (NEG) Urine Nitrite NEG (NEG) Urine Bilirubin NEG (NEG) Urine Urobilinogen NEG (NEG) Urine Leukocyte Esterase NEG (NEG) Urine Test NEG (NEG) Bedside Lactic Acid Venous 0.53 mmol/L (0.90-1.70) Medications Administered Medications (Trade) Dose Ordered Sig/Maru Route Start Time Stop Time Status Last Admin Dose Admin Sodium Chloride/ Sodium Chloride 2,000 ml @ 999 mls/hr Q2H1M ONCE IV 08/24/17 22:00 08/25/17 00:00 DC 08/24/17 22:28 999 MLS/HR Ketorolac Tromethamine (Toradol Inj) 30 mg NOW STAT IV 08/24/17 21:54 08/24/17 21:58 DC 08/24/17 22:27 30 MG Ampicillin Sodium/ Sulbactam Sodium 3000 mg/Sodium Chloride 108 ml @ 200 mls/hr NOW STAT IV 08/24/17 21:54 08/24/17 22:26 DC 08/24/17 22:27 200 MLS/HR Acetaminophen/ Hydrocodone Bitart ([place] 5/325mg Home Pack) 1 homepack UD ONCE PO 08/24/17 23:45 08/24/17 23:46 DC 08/25/17 00:09 1 HOMEPACK ED Course Physical exam and history were performed. Nursing notes, EMR, and Medication List were personally reviewed. Patient appears to have signs of a viral infection for mouth, possibly from a coxsackie-like illness as she does have shallow ulcerations throughout the oropharynx. Additionally the patient has an infected right thumb consistent with a cellulitis. There is no distinct abscess. The patient is allergic to Keflex, Bactrim, and vancomycin here in IV access was established and labs were obtained. Patient was hydrated with normal saline and given IV Unasyn. We did elect to perform cultures as there is some early signs of lymphangitic streaking regarding the right thumb. The patient's blood work is as above and was reviewed. She does not have a significantly elevated white blood cell count, gross anemia, bandemia, or significant electrolyte imbalance. Lactic acid is negative. Blood cultures are pending. Overall the patient had some but not complete improvement of her symptoms after the above interventions. Currently suspect that she has a viral infection contributing to much of her symptoms. She has tolerated penicillins the past, and because of this and will defer a course of Augmentin for the right finger cellulitis. Patient will need to follow with her primary care physician in the next few days for recheck. She is given additional information as below and invited back to the ER with any new, worsening, or concerning symptoms. The chart was completed utilizing [employer] Speech Voice Recognition Software. Grammatical errors, random word insertions, pronoun errors, and incomplete sentences are an occasional consequence of this system due to software limitations, ambient noise, and hardware issues. Any formal questions or concerns about the content, text, or information contained within the body of this dictation should be directly addressed to the provider for clarification. . Medical Decision Differential diagnosis: Etiologies such as viral syndrome, otitis, pharyngitis, pneumonia, influenza, meningitis, urinary tract infection, sepsis, bacteremia, as well as others were entertained. Impression Primary Impression: Influenza-like illness Additional Impression: Cellulitis of right hand Departure Information Dispostion Home / Self-Care Condition GOOD Prescriptions Amoxicillin & Pot Clavulanate (Augmentin 875-125 mg) 1 Tab Tab 1 TAB PO BID for 10 Days, #20 TAB Prov: Rob Torres PA-C 08/24/17 Forms HOME CARE DOCUMENTATION FORM, IMPORTANT VISIT INFORMATION Patient Instructions My [facility] Additional Instructions You were seen and evaluated today on an emergency basis only. This is not a substitute for, or an effort to provide, complete comprehensive medical care. It is not possible to recognize and treat all injuries or illnesses in a single emergency department visit. For this reason it is recommended that you followup with your primary care physician in the next 2-3 days for recheck of her condition. For baseline pain relief you may alternate ibuprofen and acetaminophen every 4 hours for pain control. Take 600 mg ibuprofen (Advil) and then 4 hours later take 1000 mg acetaminophen (Tylenol). Do not take more than 3000 mg acetaminophen in a single day. [place] (hydrocodone/acetaminophen) 5/325 mg every 6 hours as needed for worsening breakthrough pain. Do not drink or drive on [place]. This medication will likely make you tired. Do not take [place] and Tylenol at the same time as both contain acetaminophen. [place] may cause constipation. You may wish to take an [id number] stool softener like Colace if this occurs. Amoxicillin Clavulanate (Augmentin) 875mg: Take one pill twice daily for 10 days for your infection. All antibiotics can cause diarrhea. If this occurs and you feel worse or it does not resolve in 1-2 days follow up with your doctor or return to the Emergency Department as this could be signs of serious underlying problems. Any medication can cause an allergic reaction, stop the pills immediately and return to the ER for rash, hives, breathing difficulties, or swelling. Continue your other medications at home as prescribed. You are welcome to return to the emergency department anytime with new, worsening, or concerning symptoms. Problem Qualifiers
== END 2017-08-25 00:13 | disposition home or self-care (01) ==
LOC: C.EDB 20:58 → C.EDA 08-25 00:13
DX: R50.9 Fever, unspecified (principal); L03.113 Cellulitis of right upper limb; Z98.890 Other specified postprocedural states; Z83.3 Family history of diabetes mellitus; Z82.49 Family history of ischemic heart disease and other diseases of the circulatory system

== ENCOUNTER 2017-08-25 21:43 | Inpatient (IN) | payer OTHER ==
[~2017-08-25] VITALS: Ht 167.6 cm; Wt 112.9 kg
[~2017-08-25 21:43] MED LIST changes: +ACET-1222 PO; +AMOX875T PO; +MISCCAP80 PO; +NXM/40 PO; -PRD/1 PO; -VENL150C PO
[2017-08-25] MEDS ORDERED: FLUC100T4 PO (21:53)
[2017-08-25] MEDS ORDERED: IMIPENEM/CILASTATIN IV 500 MG in DEXTROSE 5% 100ML 100 ML IV STA (22:05)
[2017-08-25] MEDS ORDERED: KETOROLAC TROMETHAMINE 30 MG/ML VIAL IV STA (22:05)
[2017-08-25] MEDS ORDERED: SODIUM CHLORIDE 0.9% 1000ML 1,000 ML IV ONE (22:15)
[2017-08-25] MEDS ORDERED: DAPTOMYCIN IV ONE (22:15)
[2017-08-25] MEDS ORDERED: SODIUM CHLORIDE 0.9% IV ONE (22:15)
[2017-08-25] MEDS ORDERED: ACETAMINOPHEN IV 1,000 MG in EMPTY BAG 0 ML IV ONE (22:15)
[2017-08-25] MEDS ORDERED: DAPTOmycin IV 700 MG in SODIUM CHLORIDE 0.9% 50ML 50 ML IV ONE (22:15)
[2017-08-25] MEDS ORDERED: ACETAMINOPHEN 1000 MG/100 ML IV IV ONE (22:19)
[2017-08-25] MEDS ORDERED: HYDR-4079 PO (22:20)
[2017-08-25] MEDS ORDERED: LISD40CA PO (22:20)
[2017-08-25] MEDS ORDERED: FLUO20CA36 PO (22:20)
[2017-08-25] MEDS ORDERED: PROM25TA16 PO (22:20)
[2017-08-25] MEDS ORDERED: RIZA1TAB7 PO (22:20)
[2017-08-25] MEDS ORDERED: ONDA-63 PO (22:20)
[2017-08-25] MEDS ORDERED: PHEN37.5 PO (22:20)
[2017-08-25] MEDS ORDERED: LEVO75TA5 PO (22:20)
[2017-08-25] MEDS ORDERED: OSEL75CA16 PO (22:20)
[2017-08-25] MEDS ORDERED: EFFSR75 PO (22:20)
[2017-08-25] MEDS ORDERED: MTR500 PO (22:20)
[2017-08-25] MEDS ORDERED: TOPI200T20 PO (22:25)
[2017-08-25] MEDS ORDERED: PLQ200 PO (22:25)
[2017-08-25 22:42] LABS: BASO % 0.7 %; BASO ABS # 0.02 K/uL (0-0.2); EOS % 1.7 %; EOS ABS # 0.05 K/uL (0-0.5); HEMATOCRIT 31.9 % (37-47); IG# 0.01 K/uL (0.00-0.02); LYMPH % 35.4 %; LYMPH ABS # 1.04 K/uL (1.2-3.4); MEAN CELL VOLUME 88.6 fL (80-100); MEAN CORPUSCULAR HEMOGLOBIN 27.8 pg (25-34); MEAN CORPUSCULAR HGB CONC 31.3 g/dl (32-36); MEAN PLATELET VOLUME 9.6 fL (7.4-10.4); MONO % 12.9 %; MONO ABS # 0.38 K/uL (0.11-0.59); NEUT ABS # 1.44 K/uL (1.4-6.5); PLATELET COUNT 194 K/uL (130-400); RED CELL DISTRIBUTION WIDTH CV 15.6 % (11.5-14.5); RED CELL DISTRIBUTION WIDTH SD 51.1 fL (36.4-46.3); WHITE BLOOD COUNT 2.94 K/uL (4.8-10.8)
--- NOTE | 2017-08-25 22:47 | DIAGNOSTIC IMAGING REPORT ---
RIGHT THUMB 3 VIEWS CLINICAL HISTORY: Right thumb pain status post trauma COMPARISON: None. DISCUSSION: 3 views reveal no fractures or dislocations. IMPRESSION: No fractures or dislocations identified. Electronically signed by: Domo Gomez M.D. 08/25/2017 10:45 PM Dictated Date/Time: 08/25/2017 10:45 PM
[2017-08-25 23:00] LABS: CALCIUM 8.3 mg/dl (8.5-10.1); CREATININE 0.67 mg/dl (0.60-1.20); POTASSIUM 3.6 mmol/L (3.5-5.1)
[2017-08-25 23:02] LABS: TOTAL PROTEIN 6.9 gm/dl (6.4-8.2)
[2017-08-25] MEDS ORDERED: OXYCODONE HCL IR 5 MG TAB (IMMEDIATE RELEASE) PO STA (23:10)
[2017-08-26] MEDS ORDERED: MAGNESIUM HYDROXIDE SUSP 30 ML UDC PO PRN
[2017-08-26] MEDS ORDERED: PROMETHAZINE HCL 25 MG TAB PO PRN
[2017-08-26] MEDS ORDERED: ACETAMINOPHEN 325 MG TAB PO PRN
[2017-08-26] MEDS ORDERED: ZOLPIDEM TARTRATE 5 MG TAB PO PRN
[2017-08-26] MEDS ORDERED: ALUMINUM/MAGNESIUM/SIMETH (MAALOX MAX) 30 ML UDC PO PRN
[2017-08-26] MEDS ORDERED: IV FLUIDS COMPLETED PRN (00:45)
--- NOTE | 2017-08-26 00:58 | History and Physical ---
History & Physical Date & Time of Service: Aug 25, 2017 at 23:55 Chief Complaint: R Thumb Infection,Severe Pain,Spreading Up Arm Primary Care Physician: Kyle Richardson M.D. 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 Presents due to cellulitis of R thumb with lymphangitic spread. The pt states that she developed a crack in the skin over her thumb due to handwashing and dryness. She noted that it appeared to become infected over the past 2 days. She then observed a red streak extending up her R to above her antecubital area, and therefore presented to the hospital. She is not able to confirm related fevers, although she did have fever over the weekend associated with a flu-like illness. Initial labs are notable for neutropenia and anemia. 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 She developed a febrile illness beginning Friday and then developed multiple ulcers on her tongue and oral mucosa. She had recently tapered off a course of steroids due to a presumed RA flare. She was also recently treated for intractable C diff with Flagyl and then Dificid. Lastly, she underwent a recent endoscopy and was diagnosed with an esophageal yeast infection which she is treating with a 30 day course of Diflucan. 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 Does not smoke or drink Smoking Status: Never Smoker Drug Use: none Marital Status: Housing status: lives with family Occupational Status: employed Immunizations History of Influenza Vaccine: No History of Tetanus Vaccine?: WILL GET T-DAP 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, 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 History of Pneumococcal: No History of Hepatitis B Vaccine: Yes Multi-Drug Resistant Organisms History of MDRO: Yes Type of MDRO: MRSA Allergies Coded Allergies: Sulfa Drugs (Verified Allergy, Unknown, hives, 08/05/17) Vancomycin (Verified Adverse Reaction, Severe, red man syndrome, 08/05/17) Cephalexin (Verified Adverse Reaction, Unknown, DIARRHEA, 08/06/17) Home Medications Scheduled Amoxicillin & Pot Clavulanate (Augmentin 875-125 mg), 1 TAB PO BID Esomeprazole Magnesium (Nexium), 40 MG PO QAM Fluconazole (Diflucan), 100 MG PO DAILY Fluoxetine HCl (Fluoxetine HCl), 20 MG PO DAILY Hydroxychloroquine Sulfate (Hydroxychloroquine Sulfat), 200 MG PO BID Levothyroxine Sodium (Levothyroxine Sodium), 75 MCG PO DAILY Lisdexamfetamine Dimesylate (Vyvanse), 40 MG PO DAILY Metronidazole (Metronidazole), 500 MG PO QID Oseltamivir Phosphate (Oseltamivir Phosphate), 75 MG PO BID Phentermine Hcl (Phentermine Hcl), 37.5 MG PO DAILY Probiotic Product (Probiotic), 1 CAP PO QAM Topiramate (Topamax), 200 MG PO HS Venlafaxine Hcl (Effexor Extended Rel), 75 MG PO DAILY Scheduled PRN Acetaminophen (Acetaminophen Extra Stren), 1,000 MG PO Q8 PRN for Pain Hydrocodone/Acetaminophen 10MG/325MG ([place] 10MG/325MG), 1 TAB PO QID PRN for Pain Ondansetron (Ondansetron HCl), 8 MG PO Q8 PRN for Nausea Promethazine HCl (Promethazine HCl), 25 MG PO Q6H PRN for Nausea Rizatriptan Benzoate (Rizatriptan Benzoate), 10 MG PO UD PRN for Migraine Review of Systems Constitutional: + fever (last temp was fri or satprior to admission), No chills , No sweats Eyes: No worsening of vision ENT: No hearing loss, No unusual epistaxis, No nasal symptoms Respiratory: No cough, No sputum, No wheezing Cardiovascular: No chest pain, No orthopnea, No PND Abdomen: No pain, No nausea, No vomiting Musculoskeletal: + joint pain (chronic) Genitourinary - Female: No dysuria, No urinary frequency, No urinary urgency Neurologic: No memory loss, No paralysis, No weakness Psychiatric: No depression symptoms Endocrine: No fatigue Hematologic / Lymphatic: No abnormal bleeding/bruising Integumentary: + rash (Cellulitis of R thumb with lymphangitic spread as above) Allergic / Immunologic: No environmental allergies Physical Exam Vital Signs Date Time Temp Pulse Resp B/P (MAP) Pulse Ox O2 Delivery O2 Flow Rate FiO2 08/25/17 21:49 36.8 79 18 113/72 100 Room Air General Appearance: WD/WN, no apparent distress, + pertinent finding ( Overweight, young female in no distress) Head: normocephalic Eyes: normal inspection, PERRL, EOMI ENT: normal ENT inspection, pharynx normal Neck: supple, no adenopathy, thyroid normal, no JVD Respiratory/Chest: chest non-tender, lungs clear Cardiovascular: regular rate, rhythm, no edema, no gallop Abdomen/GI: normal bowel sounds, non tender, soft Back: normal inspection, no CVA tenderness Extremities/Musculoskelatal: normal inspection, no calf tenderness, normal capillary refill 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, no motor/sensory deficits, alert, oriented x 3 Skin: + pertinent finding (Inflammation of R thumb - skin is split at top of thumb - lymphangitis spread present from R thumb to R antecubital area) Diagnostics Laboratory Results Results Past 24 Hours Test 08/25/17 22:20 Range/Units White Blood Count 2.94 4.8-10.8 K/uL Red Blood Count 3.60 4.2-5.4 M/uL Hemoglobin 10.0 12.0-16.0 g/dL Hematocrit 31.9 37-47 % Mean Corpuscular Volume 88.6 80-100 fL Mean Corpuscular Hemoglobin 27.8 25-34 pg Mean Corpuscular Hemoglobin Concent 31.3 32-36 g/dl Platelet Count 194 130-400 K/uL Mean Platelet Volume 9.6 7.4-10.4 fL Neutrophils (%) (Auto) 49.0 % Lymphocytes (%) (Auto) 35.4 % Monocytes (%) (Auto) 12.9 % Eosinophils (%) (Auto) 1.7 % Basophils (%) (Auto) 0.7 % Neutrophils # (Auto) 1.44 1.4-6.5 K/uL Lymphocytes # (Auto) 1.04 1.2-3.4 K/uL Monocytes # (Auto) 0.38 0.11-0.59 K/uL Eosinophils # (Auto) 0.05 0-0.5 K/uL Basophils # (Auto) 0.02 0-0.2 K/uL RDW Standard Deviation 51.1 36.4-46.3 fL RDW Coefficient of Variation 15.6 11.5-14.5 % Immature Granulocyte % (Auto) 0.3 % Immature Granulocyte # (Auto) 0.01 0.00-0.02 K/uL Erythrocyte Sedimentation Rate 60 0-21 mm/hr Sodium Level 137 136-145 mmol/L Potassium Level 3.6 3.5-5.1 mmol/L Chloride Level 109 98-107 mmol/L Carbon Dioxide Level 18 21-32 mmol/L Anion Gap 10.0 3-11 mmol/L Blood Urea Nitrogen 8 7-18 mg/dl Creatinine 0.67 0.60-1.20 mg/dl Est Creatinine Clear Calc Drug Dose 143.6 ml/min Estimated GFR () 128.3 Estimated GFR (Non- 110.7 BUN/Creatinine Ratio 11.9 10-20 Random Glucose 82 70-99 mg/dl Calcium Level 8.3 8.5-10.1 mg/dl Total Bilirubin 0.2 0.2-1 mg/dl Aspartate Amino Transf (AST/SGOT) 51 15-37 U/L Alanine Aminotransferase (ALT/SGPT) 61 12-78 U/L Alkaline Phosphatase 178 45-117 U/L C-Reactive Protein 7.64 0-0.29 mg/dl Total Protein 6.9 6.4-8.2 gm/dl Albumin 3.0 3.4-5.0 gm/dl Globulin 3.9 2.5-4.0 gm/dl Albumin/Globulin Ratio 0.8 0.9-2 Microbiology Results 08/25/17 Blood Culture, Received Pending 08/25/17 Blood Culture, Received Pending 08/25/17 Gram Stain, Received Pending 08/25/17 Wound Culture, Received Pending Diagnostic Radiology XR thumb R: No fractures or dislocations identified. 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 Presents due to cellulitis of R thumb with lymphangitic spread. The pt states that she developed a crack in the skin over her thumb due to handwashing and dryness. She noted that it appeared to become infected over the past 2 days. She then observed a red streak extending up her R to above her antecubital area, and therefore presented to the hospital. She is not able to confirm related fevers, although she did have fever over the weekend associated with a flu-like illness. Initial labs are notable for neutropenia and anemia. 1) Cellulitis of thumb - the pt received Primaxin and Vanc in the ER. Considering her recent severe C-diff we would look to narrow her coverage as possible. She does not currently have evidence of sepsis. Will start Doxycycline only AM pending culture results. The affected area has been delineated. It does not appear surgical at present. We should consult ortho if she fails to respond to antibiotics. 2) Multiple ulcers on tongue and oral mucosa - the pt attributes this to her recent flu-like illness which she believes may be Coxsackie virus herpangina. This may be the case, however, it may also be due to her autoimmune condition which is likely RA but is poorly defined. She can be prescribed an appropriate mouthwash such as Ricco solution. We may want to avoid steroids as she has esophageal thrush as a result of a taper. 3) Esophageal thrush - cont Diflucan 4) RA - cont Hydrochloroquine 5) Hypothyroidism - cont Synthroid 6) Neutropenia - this is new compared to recent labs and will be trended - cause is not clear - may be related to her recent viral illness 7) Anemia - Hb is stable compared to recent Full code - Heparin prophylaxis Total time for this admit including review of labs, meds, imaging, records - discussion with pt and ER attending - 38 min Level of Care Med/Surg Resuscitation Status FULL RESUSCITATION VTE Prophylaxis VTE Risk Assessment Done? Y/N: Yes Risk Level: Low Given or contraindicated: Unfractionated heparin SQ
[2017-08-26 01:20] VITALS: BP 117/81; PULSE 70; TEMP 36.5; O2SAT 99
[2017-08-26] MEDS: HYDROCODONE/ACETAMI 10/325 TAB PO PRN ×3 (01:37→17:54)
[2017-08-26] MEDS ORDERED: POLYETHYLENE (MIRALAX) 17 GM PACK PO PRN (01:45)
[2017-08-26] MEDS ORDERED: D5NSS + 20MEQ KCL 1,000 ML IV SCH (01:45)
[2017-08-26 01:52] LABS: HEMATOCRIT 32.1 % (37-47); HEMOGLOBIN 9.9 g/dL (12.0-16.0); MEAN CELL VOLUME 89.7 fL (80-100); MEAN CORPUSCULAR HEMOGLOBIN 27.7 pg (25-34); MEAN CORPUSCULAR HGB CONC 30.8 g/dl (32-36); MEAN PLATELET VOLUME 9.3 fL (7.4-10.4); PLATELET COUNT 187 K/uL (130-400); RED CELL DISTRIBUTION WIDTH CV 15.5 % (11.5-14.5); RED CELL DISTRIBUTION WIDTH SD 51.3 fL (36.4-46.3); WHITE BLOOD COUNT 2.94 K/uL (4.8-10.8)
[2017-08-26] MEDS ORDERED: TOPIRAMATE 100 MG TAB PO ONE (01:55)
[2017-08-26 03:08] VITALS: BP 117/81; PULSE 70; TEMP 36.5; O2SAT 99; Ht 167.6 cm; Wt 112.9 kg
--- NOTE | 2017-08-26 04:09 | EMERGENCY ROOM VISIT NOTE ---
History First contact with patient: 21:55 Chief Complaint: FINGER PAIN Stated Complaint: CELLULITIS OF THUMB History of Present Illness The patient is a 41 year old female who presents to the Emergency Room with complaints of worsening infection of her right thumb. The patient had an ingrown nail removed about his ago from the right thumb. She has had slowly worsening and progressive pain and redness. The patient was seen yesterday in the emergency department for mouth ulcerations as well as this infection. She was given IV Unasyn and discharged with Augmentin. She states that she has been taking the medication as prescribed, however her thumb pain has worsened. She is now having streaking up her arm past the antecubital space. She does not recall distinct fevers. She rates her pain a 9/10. Review of Systems More than 10 systems were reviewed and otherwise negative with the exception of history of present illness. Past Medical/Surgical History Medical Problems: (1) Cellulitis of thumb Surgical Problems: (1) Post-operative state Family History Cancer Diabetes mellitus FH: heart disease FHx: gallbladder disease Hypertension Social History Smoking Status: Never Smoker Drug Use: none Marital Status: Housing Status: lives with family Occupation Status: employed Current/Historical Medications Scheduled Amoxicillin & Pot Clavulanate (Augmentin 875-125 mg), 1 TAB PO BID Esomeprazole Magnesium (Nexium), 40 MG PO QAM Fluconazole (Diflucan), 100 MG PO DAILY Fluoxetine HCl (Fluoxetine HCl), 20 MG PO DAILY Hydroxychloroquine Sulfate (Hydroxychloroquine Sulfat), 200 MG PO BID Levothyroxine Sodium (Levothyroxine Sodium), 75 MCG PO DAILY Lisdexamfetamine Dimesylate (Vyvanse), 40 MG PO DAILY Metronidazole (Metronidazole), 500 MG PO QID Oseltamivir Phosphate (Oseltamivir Phosphate), 75 MG PO BID Phentermine Hcl (Phentermine Hcl), 37.5 MG PO DAILY Probiotic Product (Probiotic), 1 CAP PO QAM Topiramate (Topamax), 200 MG PO HS Venlafaxine Hcl (Effexor Extended Rel), 75 MG PO DAILY Scheduled PRN Acetaminophen (Acetaminophen Extra Stren), 1,000 MG PO Q8 PRN for Pain Hydrocodone/Acetaminophen 10MG/325MG ([place] 10MG/325MG), 1 TAB PO QID PRN for Pain Ondansetron (Ondansetron HCl), 8 MG PO Q8 PRN for Nausea Promethazine HCl (Promethazine HCl), 25 MG PO Q6H PRN for Nausea Rizatriptan Benzoate (Rizatriptan Benzoate), 10 MG PO UD PRN for Migraine Physical Exam Vital Signs Date Time Temp Pulse Resp B/P (MAP) Pulse Ox O2 Delivery O2 Flow Rate FiO2 08/25/17 21:49 36.8 79 18 113/72 100 Room Air Physical Exam VITALS: Vitals are noted on the nurse's note and reviewed by myself. Vital signs stable. GENERAL: Well-developed, well-nourished, white female, who is in no acute distress and resting comfortably. Patient is cooperative with the examination. HEAD: Normocephalic atraumatic. HEART: Regular rate and rhythm without murmurs gallops or rubs. LUNGS: Clear to auscultation bilaterally without wheezes, rales or rhonchi. No retractions or accessory muscle use. MUSCULOSKELETAL: Erythema and edema is appreciated at the distal posterior aspect of the right thumb. Clinically this appears worsened in total edema and erythema when compared to yesterday. There is a small amount of exudative-like drainage appreciated in the lateral nail fold, which was cultured. There is notable lymphangitic streaking into the posterior and, forearm, and through the antecubital fossa into the right upper arm. The patient does have full sensation and range of motion of the right hand. There is no distinct abscess available for drainage noted. Medical Decision & Procedures ER Provider Diagnostic Interpretation: RIGHT THUMB 3 VIEWS CLINICAL HISTORY: Right thumb pain status post trauma COMPARISON: None. DISCUSSION: 3 views reveal no fractures or dislocations. IMPRESSION: No fractures or dislocations identified. Laboratory Results 08/25/17 22:20 Test 08/25/17 22:20 08/25/17 22:24 Immature Granulocyte % (Auto) 0.3 % White Blood Count 2.94 K/uL (4.8-10.8) Red Blood Count 3.60 M/uL (4.2-5.4) Hemoglobin 10.0 g/dL (12.0-16.0) Hematocrit 31.9 % (37-47) Mean Corpuscular Volume 88.6 fL (80-100) Mean Corpuscular Hemoglobin 27.8 pg (25-34) Mean Corpuscular Hemoglobin Concent 31.3 g/dl (32-36) Platelet Count 194 K/uL (130-400) Mean Platelet Volume 9.6 fL (7.4-10.4) Neutrophils (%) (Auto) 49.0 % Lymphocytes (%) (Auto) 35.4 % Monocytes (%) (Auto) 12.9 % Eosinophils (%) (Auto) 1.7 % Basophils (%) (Auto) 0.7 % Neutrophils # (Auto) 1.44 K/uL (1.4-6.5) Lymphocytes # (Auto) 1.04 K/uL (1.2-3.4) Monocytes # (Auto) 0.38 K/uL (0.11-0.59) Eosinophils # (Auto) 0.05 K/uL (0-0.5) Basophils # (Auto) 0.02 K/uL (0-0.2) Immature Granulocyte # (Auto) 0.01 K/uL (0.00-0.02) Erythrocyte Sedimentation Rate 60 mm/hr (0-21) Anion Gap 10.0 mmol/L (3-11) Est Creatinine Clear Calc Drug Dose 143.6 ml/min Estimated GFR () 128.3 Estimated GFR (Non- 110.7 BUN/Creatinine Ratio 11.9 (10-20) Calcium Level 8.3 mg/dl (8.5-10.1) Total Bilirubin 0.2 mg/dl (0.2-1) Aspartate Amino Transf (AST/SGOT) 51 U/L (15-37) Alanine Aminotransferase (ALT/SGPT) 61 U/L (12-78) Alkaline Phosphatase 178 U/L (45-117) C-Reactive Protein 7.64 mg/dl (0-0.29) Total Protein 6.9 gm/dl (6.4-8.2) Albumin 3.0 gm/dl (3.4-5.0) Globulin 3.9 gm/dl (2.5-4.0) Albumin/Globulin Ratio 0.8 (0.9-2) Bedside Lactic Acid Venous 0.64 mmol/L (0.90-1.70) Medications Administered Medications (Trade) Dose Ordered Sig/Maru Route Start Time Stop Time Status Last Admin Dose Admin Imipenem/ Cilastatin Sodium 500 mg/Dextrose 110 ml @ 100 mls/hr NOW STAT IV 08/25/17 22:05 08/25/17 23:10 DC 08/25/17 23:46 100 MLS/HR Ketorolac Tromethamine (Toradol Inj) 30 mg NOW STAT IV 08/25/17 22:05 08/25/17 22:10 DC 08/25/17 22:29 30 MG Sodium Chloride 1,000 ml @ 999 mls/hr Q1H1M ONCE IV 08/25/17 22:15 08/25/17 23:15 DC 08/25/17 22:30 999 MLS/HR Acetaminophen 1000 mg/Empty Bag 100 ml @ 400 mls/hr NOW ONCE IV 08/25/17 22:15 08/25/17 22:29 DC 08/25/17 22:15 400 MLS/HR Daptomycin 700 mg/ Sodium Chloride 64 ml @ 100 mls/hr 2215 ONCE IV 08/25/17 22:15 08/25/17 22:53 DC 08/25/17 23:24 100 MLS/HR Oxycodone HCl (Roxicodone Immediate Rel Tab) 10 mg NOW STAT PO 08/25/17 23:10 08/25/17 23:11 DC 08/25/17 23:24 10 MG ED Course Physical exam and history were performed. Nursing notes, EMR, and Medication List were personally reviewed. Patient appears to have a cellulitis of her right thumb that is distinctly worsened when compared to yesterday. The patient was given Unasyn IV yesterday and evidently has been taking Augmentin as prescribed otherwise. IV access was established and labs were obtained. As there is distinct lymphangitic streaking when compared to yesterday the patient was given Primaxin and daptomycin through the IV. X-ray was performed to evaluate for osteomyelitis. The patient's blood work is as above and was reviewed. She has a low white blood cell count and is mildly anemic. Lactic acid is negative. CRP is elevated. X-ray does not show obvious osteomyelitis. I clinically suspect that her white blood cell count is decreased and she has influenza-like symptoms for the past several days on top of her right thumb infection. She is completing a course of Tamiflu. Overall the patient does not appear well for discharge home. She is having a notably worsening infection of the right thumb over the past 24 hours despite antibiotic coverage. The case was discussed with the on-call hospitalist, who agreed to evaluate the patient here in the ER. Please see their dictation for further patient course, plan, and disposition. The chart was completed utilizing [employer] Speech Voice Recognition Software. Grammatical errors, random word insertions, pronoun errors, and incomplete sentences are an occasional consequence of this system due to software limitations, ambient noise, and hardware issues. Any formal questions or concerns about the content, text, or information contained within the body of this dictation should be directly addressed to the provider for clarification. . Medical Decision Differential diagnosis: Etiologies such as cellulitis, abscess, MRSA infection, DVT, necrotizing fasciitis, dermatitis, drug eruption, as well as others were entertained.. Impression Primary Impression: Cellulitis of thumb Departure Information Dispostion Still a Patient Condition GOOD Referrals Kyle Richardson M.D. (PCP) Forms WORK / SCHOOL INSTRUCTIONS, HOME CARE DOCUMENTATION FORM, IMPORTANT VISIT INFORMATION Patient Instructions [facility]
[2017-08-26] MEDS: DOXYCYCLINE IV 100 MG in DEXTROSE 5% 100ML 100 ML IV SCH ×2 (05:48→17:49)
[2017-08-26] MEDS: LEVOTHYROXINE 75 MCG TAB PO SCH (05:52)
[2017-08-26] MEDS: HEPARIN SOD 5000 UNIT/0.5 ML CARP SQ SCH ×3 (05:52→20:57)
[2017-08-26 07:49] VITALS: BP 124/84; PULSE 68; TEMP 36.6; O2SAT 97
[2017-08-26] MEDS: PANTOprazole SOD 40 MG TAB PO SCH (08:30)
[2017-08-26] MEDS: FLUOXETINE HCL 20 MG CAP PO SCH (08:30)
[2017-08-26] MEDS: VENLAFAXINE HCL XR 75 MG CAPXR PO SCH (08:30)
[2017-08-26] MEDS: FLUCONAZOLE 100 MG TAB PO SCH (08:30)
[2017-08-26] MEDS: HYDROXYCHLOROQUINE SULFATE 200 MG TAB PO SCH ×2 (08:30→20:45)
[2017-08-26] MEDS ORDERED: NON-FORMULARY MEDICATION (Probiotic Product (Probiotic) 1 CAP) PO SCH (09:00)
[2017-08-26] MEDS ORDERED: LIDOCAINE HCL 2% VISC SOLN 20 ML UDC MT PRN (10:15)
[2017-08-26] MEDS: ACYCLOVIR 400 MG TAB PO SCH ×2 (13:48→20:44)
[2017-08-26 14:53] VITALS: BP 113/78; PULSE 80; TEMP 36.3; O2SAT 99
--- NOTE | 2017-08-26 15:00 | Hospitalist Progress Note ---
Hospitalist Progress Note Date of Service Aug 26, 2017. Subjective Pt evaluation today including: conversation w/ patient, physical exam, chart review, lab review, review of inpatient medication list Voiding: no voiding problems Ms. Gonzáles reports that her thumb is feeling much better and that is less red and swollen today with less drainage and that the streaks up her arm are much less red. She does not have aches or chills or fever. Her mouth continues to be very painful with multiple sores on her tongue and throat as well as exanthems on her cheeks, she denies every having any on her hands or feet. ROS Constitutional: no chills, aches, sweats or fever Respiratory: no sob,cough, sputum, or wheezing Cardiac: no chest pain, palpitations, edema, orthopnea or lightheadedness GI: no abdominal pain, nausea, vomiting, diarrhea or constipation : no dysuria or hesitancy Extremities: no joint pain or weakness Skin: see HPI All other systems reviewed and negative Medications Medications Administered Medications (Trade) Dose Ordered Sig/Maru Route Start Time Stop Time Status Last Admin Dose Admin Imipenem/ Cilastatin Sodium 500 mg/Dextrose 110 ml @ 100 mls/hr NOW STAT IV 08/25/17 22:05 08/25/17 23:10 DC 08/25/17 23:46 100 MLS/HR Ketorolac Tromethamine (Toradol Inj) 30 mg NOW STAT IV 08/25/17 22:05 08/25/17 22:10 DC 08/25/17 22:29 30 MG Sodium Chloride 1,000 ml @ 999 mls/hr Q1H1M ONCE IV 08/25/17 22:15 08/25/17 23:15 DC 08/25/17 22:30 999 MLS/HR Acetaminophen 1000 mg/Empty Bag 100 ml @ 400 mls/hr NOW ONCE IV 08/25/17 22:15 08/25/17 22:29 DC 08/25/17 22:15 400 MLS/HR Daptomycin 700 mg/ Sodium Chloride 64 ml @ 100 mls/hr 2215 ONCE IV 08/25/17 22:15 08/25/17 22:53 DC 08/25/17 23:24 100 MLS/HR Oxycodone HCl (Roxicodone Immediate Rel Tab) 10 mg NOW STAT PO 08/25/17 23:10 08/25/17 23:11 DC 08/25/17 23:24 10 MG Fluconazole (Diflucan Tab) 100 mg DAILY PO 08/26/17 09:00 09/05/17 08:59 08/26/17 08:30 100 MG Fluoxetine HCl (Prozac Cap) 20 mg DAILY PO 08/26/17 09:00 09/25/17 08:59 08/26/17 08:30 20 MG Hydroxychloroquine Sulfate (Plaquenil Tab) 200 mg BID PO 08/26/17 09:00 09/25/17 08:59 08/26/17 08:30 200 MG Levothyroxine Sodium (Synthroid Tab) 75 mcg DAILYBB PO 08/26/17 06:30 09/25/17 06:29 08/26/17 05:52 75 MCG Venlafaxine HCl (effeXOR EXTENDED REL CAP) 75 mg DAILY PO 08/26/17 09:00 09/25/17 08:59 08/26/17 08:30 75 MG Pantoprazole Sodium (Protonix Tab) 40 mg QAM PO 08/26/17 09:00 09/25/17 08:59 08/26/17 08:30 40 MG Potassium Chloride/Dextrose/ Sod Cl 1,000 ml @ 100 mls/hr Q10H IV 08/26/17 01:45 08/26/17 11:44 DC 08/26/17 02:00 100 MLS/HR Acetaminophen/ Hydrocodone Bitart ([place] 10/325 Tab) 1 tab QID PRN PO 08/26/17 00:15 09/09/17 00:14 08/26/17 08:38 1 TAB Doxycycline Hyclate 100 mg/ Dextrose 110 ml @ 50 mls/hr Q12H IV 08/26/17 06:00 09/05/17 05:59 08/26/17 05:48 50 MLS/HR Topiramate (Topamax Tab) 300 mg 0155 ONCE PO 08/26/17 01:55 08/26/17 02:03 DC 08/26/17 02:28 300 MG Acyclovir (Zovirax Tab) 400 mg TID PO 08/26/17 14:00 09/05/17 13:59 08/26/17 13:48 400 MG Lidocaine HCl (Viscous Lidocaine 2% Soln) 20 ml Q3H PRN MT 08/26/17 10:15 09/25/17 10:14 08/26/17 11:37 20 ML Objective Vital Signs Date Time Temp Pulse Resp B/P (MAP) Pulse Ox O2 Delivery O2 Flow Rate FiO2 08/26/17 08:10 Room Air 08/26/17 07:49 36.6 68 18 124/84 (97) 97 Room Air 08/26/17 04:15 Room Air 08/26/17 03:08 99 Room Air 08/26/17 01:20 36.5 70 16 117/81 (93) 99 Room Air 08/26/17 01:04 70 18 109/79 98 08/25/17 21:49 36.8 79 18 113/72 100 Room Air Physical Exam Notes: General: no distress Eyes: normal inspection, PERLL Respiratory: chest non tender, clear to auscultation, normal breath sounds, no respiratory distress, no accessory muscle use Cardiac: regular rate and rhythm, no rub or gallop, no murmur, no edema, no jvd GI/: active bowel sounds, no abd pain or tenderness, soft, non distended Extremities: normal range of motion, normal strength, non tender Neuro/Psych: alert and oriented x 3, normal mood and affect Skin: normal color, dry Laboratory Results Last 24 Hours Test 08/25/17 22:20 08/25/17 22:24 08/26/17 01:44 White Blood Count 2.94 K/uL 2.94 K/uL Red Blood Count 3.60 M/uL 3.58 M/uL Hemoglobin 10.0 g/dL 9.9 g/dL Hematocrit 31.9 % 32.1 % Mean Corpuscular Volume 88.6 fL 89.7 fL Mean Corpuscular Hemoglobin 27.8 pg 27.7 pg Mean Corpuscular Hemoglobin Concent 31.3 g/dl 30.8 g/dl Platelet Count 194 K/uL 187 K/uL Mean Platelet Volume 9.6 fL 9.3 fL Neutrophils (%) (Auto) 49.0 % Lymphocytes (%) (Auto) 35.4 % Monocytes (%) (Auto) 12.9 % Eosinophils (%) (Auto) 1.7 % Basophils (%) (Auto) 0.7 % Neutrophils # (Auto) 1.44 K/uL Lymphocytes # (Auto) 1.04 K/uL Monocytes # (Auto) 0.38 K/uL Eosinophils # (Auto) 0.05 K/uL Basophils # (Auto) 0.02 K/uL RDW Standard Deviation 51.1 fL 51.3 fL RDW Coefficient of Variation 15.6 % 15.5 % Immature Granulocyte % (Auto) 0.3 % Immature Granulocyte # (Auto) 0.01 K/uL Erythrocyte Sedimentation Rate 60 mm/hr Sodium Level 137 mmol/L Potassium Level 3.6 mmol/L Chloride Level 109 mmol/L Carbon Dioxide Level 18 mmol/L Anion Gap 10.0 mmol/L Blood Urea Nitrogen 8 mg/dl Creatinine 0.67 mg/dl Est Creatinine Clear Calc Drug Dose 143.6 ml/min Estimated GFR () 128.3 Estimated GFR (Non- 110.7 BUN/Creatinine Ratio 11.9 Random Glucose 82 mg/dl Calcium Level 8.3 mg/dl Total Bilirubin 0.2 mg/dl Aspartate Amino Transf (AST/SGOT) 51 U/L Alanine Aminotransferase (ALT/SGPT) 61 U/L Alkaline Phosphatase 178 U/L C-Reactive Protein 7.64 mg/dl Total Protein 6.9 gm/dl Albumin 3.0 gm/dl Globulin 3.9 gm/dl Albumin/Globulin Ratio 0.8 Bedside Lactic Acid Venous 0.64 mmol/L Prothrombin Time 10.0 SECONDS Prothromb Time International Ratio 1.0 Assessment and Plan Ms. Gonzáles is a 41 year old woman here for cellulitis of the right thumb Cellulitis of thumb - the pt received Primaxin and Vanc in the ER. - Continue doxycycline - coverage narrowed as much as possible until cultures come back to avoid risk of C-diff which patient has a history of within the last month. Currently, patient is improving clinically with doxycycline Oral herpes simplex, initial infection - There is no exudate on tonsils nor exanthems on feet or hands so would assume this is HSV-1 initial infection rather than Coxsackie herpangina. - Though she is four days out from initial symptoms, will start acyclovir given severity of symptoms and patients inability to eat due to the pain in her mouth - Viscous lidocaine q3h prn. Esophageal thrush - cont Diflucan RA - cont Hydrochloroquine Hypothyroidism - cont Synthroid Anemia - Hb is stable compared to recent Full code, heparin subq for dvt prophylaxis
[2017-08-26] MEDS: ONDANSETRON INJ 2 MG/ML 2 ML VIAL IV PRN (17:54)
[2017-08-26] MEDS ORDERED: MAGIC MOUTHWASH PO PRN (18:30)
[2017-08-26] MEDS ORDERED: DEXAMETHASONE CONC SOLN 3.75 MG, NYSTATIN SUSP 30 ML, DiphenhydrAMINE HCL SYRUP 300 MG,... PO PRN ×5 (19:30)
[2017-08-26 20:30] VITALS: O2SAT 99
[2017-08-26] MEDS ORDERED: TOPIRAMATE 100 MG TAB PO SCH ×2 (21:00)
[2017-08-26 22:59] VITALS: BP 120/71; PULSE 85; TEMP 37.2; O2SAT 96
[2017-08-27 00:33] VITALS: O2SAT 99
[2017-08-27] MEDS: DOXYCYCLINE IV 100 MG in DEXTROSE 5% 100ML 100 ML IV SCH (06:20)
[2017-08-27] MEDS: ONDANSETRON INJ 2 MG/ML 2 ML VIAL IV PRN (06:28)
[2017-08-27] MEDS: HYDROCODONE/ACETAMI 10/325 TAB PO PRN (06:29)
[2017-08-27] MEDS: LEVOTHYROXINE 75 MCG TAB PO SCH (06:30)
[2017-08-27] MEDS: HEPARIN SOD 5000 UNIT/0.5 ML CARP SQ SCH ×2 (06:30→13:19)
[2017-08-27] MEDS: PANTOprazole SOD 40 MG TAB PO SCH (07:40)
[2017-08-27] MEDS: FLUCONAZOLE 100 MG TAB PO SCH (07:41)
[2017-08-27] MEDS: VENLAFAXINE HCL XR 75 MG CAPXR PO SCH (07:41)
[2017-08-27] MEDS: HYDROXYCHLOROQUINE SULFATE 200 MG TAB PO SCH (07:41)
[2017-08-27] MEDS: FLUOXETINE HCL 20 MG CAP PO SCH (07:41)
[2017-08-27] MEDS: ACYCLOVIR 400 MG TAB PO SCH ×2 (07:41→13:20)
[2017-08-27 08:03] VITALS: BP 108/67; PULSE 80; TEMP 36.6; O2SAT 96
[2017-08-27 08:35] LABS: BASO % 0.7 %; BASO ABS # 0.02 K/uL (0-0.2); EOS % 1.4 %; EOS ABS # 0.04 K/uL (0-0.5); HEMATOCRIT 29.7 % (37-47); HEMOGLOBIN 9.4 g/dL (12.0-16.0); IG# 0.01 K/uL (0.00-0.02); LYMPH % 33.7 %; LYMPH ABS # 0.96 K/uL (1.2-3.4); MEAN CELL VOLUME 88.7 fL (80-100); MEAN CORPUSCULAR HEMOGLOBIN 28.1 pg (25-34); MEAN CORPUSCULAR HGB CONC 31.6 g/dl (32-36); MEAN PLATELET VOLUME 9.2 fL (7.4-10.4); MONO % 11.9 %; MONO ABS # 0.34 K/uL (0.11-0.59); NEUT % 51.9 %; NEUT ABS # 1.48 K/uL (1.4-6.5); PLATELET COUNT 203 K/uL (130-400); RED CELL DISTRIBUTION WIDTH CV 15.4 % (11.5-14.5); RED CELL DISTRIBUTION WIDTH SD 49.9 fL (36.4-46.3); WHITE BLOOD COUNT 2.85 K/uL (4.8-10.8)
[2017-08-27 08:54] LABS: CALCIUM 8.2 mg/dl (8.5-10.1); CREATININE 0.59 mg/dl (0.60-1.20); POTASSIUM 3.8 mmol/L (3.5-5.1)
[2017-08-27] MEDS ORDERED: SACCHAROMYCES BOUL (FLORASTOR) 250 MG CAP PO SCH (09:00)
[2017-08-27 11:26] VITALS: BP 108/67; PULSE 80; TEMP 36.6; O2SAT 96
[2017-08-27] MEDS ORDERED: ZVR400 PO (11:27)
[2017-08-27] MEDS ORDERED: DOXY-300 PO (11:27)
--- NOTE | 2017-08-27 11:46 | Discharge Instructions ---
Discharge Instructions Date of Service Aug 27, 2017. Admission Reason for Admission: Cellulitis Of Thumb Discharge Discharge Diagnosis / Problem: Cellulitis of thumb Discharge Goals Goal(s): Improve disease control Activity Recommendations Activity Limitations: resume your previous activity . Instructions / Follow-Up Instructions / Follow-Up Please follow with your primary care doctor within about a week. Your sensitivities for your wound culture have not resulted. I will call you if your antibiotic needs to be changed when the sensitivities are back. Current Hospital Diet Patient's current hospital diet: Regular Diet Discharge Diet Recommended Diet: Regular Diet Procedures Procedures Performed: Finger x-ray Pending Studies Studies pending at discharge: yes List of pending studies: wound culture sensitivities Medical Emergencies . Who to Call and When: Medical Emergencies: If at any time you feel your situation is an emergency, please call 911 immediately. . Non-Emergent Contact Non-Emergency issues call your: Primary Care Provider Call Non-Emergent contact if: you have a fever, wound has increased drainage, wound has increased redness, wound has increased pain, you have any medication questions . . "Provider Documentation" section prepared by Maritza Polanco. . VTE Core Measure Inpt VTE Proph given/why not?: Unfractionated heparin SQ
[2017-08-27] MEDS ORDERED: SUMATRIPTAN SUCCINATE 50 MG TAB PO ONE (12:30)
--- NOTE | 2017-08-27 16:27 | Discharge Summary ---
Discharge Summary Date of Service Aug 27, 2017. 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 DISCUSSION: 3 views reveal no fractures or dislocations. IMPRESSION: No fractures or dislocations identified. Medication Reconciliation New Medications: Doxycycline (Monohydrate) (Doxycycline) 100 Mg Cap 100 MG PO BID for 8 Days, #16 CAP Acyclovir (Acyclovir) 400 Mg Tab 400 MG PO TID for 6 Days, #18 TAB Continued Medications: Acetaminophen (Acetaminophen Extra Stren) 500 Mg Tab 1000 MG PO Q8 PRN for Pain Esomeprazole Magnesium (Nexium) 40 Mg Capcr 40 MG PO QAM, CAP Fluconazole (Diflucan) 100 Mg Tab 100 MG PO DAILY, TAB Fluoxetine HCl (Fluoxetine HCl) 20 Mg Cap 20 MG PO DAILY Hydrocodone/Acetaminophen 10MG/325MG ([place] 10MG/325MG) Tab 1 TAB PO QID PRN for Pain, TAB PRN PAIN Hydroxychloroquine Sulfate (Hydroxychloroquine Sulfat) 200 Mg Tab 200 MG PO BID Levothyroxine Sodium (Levothyroxine Sodium) 75 Mcg Tab 75 MCG PO DAILY Lisdexamfetamine Dimesylate (Vyvanse) 40 Mg Cap 40 MG PO DAILY Metronidazole (Metronidazole) 500 Mg Tab 500 MG PO QID for 30 Days SCRIPT FILLED 08/17/2017, TAKE DIRECTED UNTIL GONE Ondansetron (Ondansetron HCl) 8 Mg Tab 8 MG PO Q8 PRN for Nausea Phentermine Hcl (Phentermine Hcl) 37.5 Mg Tab 37.5 MG PO DAILY Probiotic Product (Probiotic) 1 Cap Cap 1 CAP PO QAM Promethazine HCl (Promethazine HCl) 25 Mg Tab 25 MG PO Q6H PRN for Nausea Rizatriptan Benzoate (Rizatriptan Benzoate) 10 Mg Tab 10 MG PO UD PRN for Migraine TAKE 1 TABLET AT ONSET OF MIGRAINE, MAY REPEAT IN 2 HOURS IF NEEDED Topiramate (Topamax) 200 Mg Tab 200 MG PO HS Venlafaxine Hcl (Effexor Extended Rel) 75 Mg Capcr 75 MG PO DAILY Discontinued Medications: Amoxicillin & Pot Clavulanate (Augmentin 875-125 mg) 1 Tab Tab 1 TAB PO BID for 10 Days, #20 TAB Oseltamivir Phosphate (Oseltamivir Phosphate) 75 Mg Cap 75 MG PO BID for 5 Days PRESCRIBED 08/22/2017, TAKE DIRECTED UNTIL GONE Discharge Exam ROS Constitutional: no chills, aches, sweats or fever Respiratory: no sob,cough, sputum, or wheezing Cardiac: no chest pain, palpitations, edema, orthopnea or lightheadedness GI: no abdominal pain, nausea, vomiting, diarrhea or constipation : no dysuria or hesitancy Extremities: edema right thumb, small amount of drainage Skin: no rash All other systems reviewed and negative PE General: no distress Eyes: normal inspection, PERLL Respiratory: chest non tender, clear to auscultation, normal breath sounds, no respiratory distress, no accessory muscle use Cardiac: regular rate and rhythm, no rub or gallop, no murmur, no edema, no jvd GI/: active bowel sounds, no abd pain or tenderness, soft, non distended Extremities: normal range of motion, normal strength, non tender Neuro/Psych: alert and oriented x 3, normal mood and affect Skin: right thumb with mild edema, very faint erythema streaks on arm to elbow - marked improvement over presentation Hospital Course 41 y/o F Hx Depression, RF neg RA, C diff, gastroparesis, migraines, anemia, hypothyroidism. Presented due to cellulitis of R thumb with lymphangitic spread. The pt states that she developed a crack in the skin over her thumb due to handwashing and dryness. She noted that it appeared to become infected over the past 2 days. She then observed a red streak extending up her R to above her antecubital area, and therefore presented to the hospital. She did have fever over the weekend [employer] with associated with a flu-like illness. Initial labs are notable for neutropenia and anemia. 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 She developed a febrile illness beginning Friday and then developed multiple ulcers on her tongue and oral mucosa. She had recently tapered off a course of steroids due to a presumed RA flare. She was also recently treated for intractable C diff with Flagyl and then Dificid. Lastly, she underwent a recent endoscopy and was diagnosed with an esophageal yeast infection which she is treating with a 30 day course of Diflucan. Cellulitis of thumb - the pt received Primaxin and Vanc in the ER and then switched to doxycycline - coverage narrowed as much as possible until cultures came back to avoid risk of C-diff which patient has a history of within the last month. Currently, patient is improving clinically with doxycycline - blood cultures showed a staph species and group b beta strep - awaiting sensitivities but likely doxycycline will remain the treatment given her clinical response and will continue for 8 more days. Oral herpes simplex, initial infection - There is no exudate on tonsils nor exanthems on feet or hands so would assume this is HSV-1 initial infection rather than Coxsackie herpangina. - Though she is four days out from initial symptoms, will start acyclovir given severity of symptoms and patients inability to eat due to the pain in her mouth - Viscous lidocaine q3h prn - patient unable to tolerate this medication Esophageal thrush - cont Diflucan RA - cont Hydrochloroquine Hypothyroidism - cont Synthroid Anemia - Hb is stable compared to recent Total Time Spent: Greater than 30 minutes This includes examination of the patient, discharge planning, medication reconciliation, and communication with other providers. Discharge Instructions Please refer to the electronic Patient Visit Report (Discharge Instructions) for additional information. Follow-Up Patient should follow with her primary care within about a week. Additional Copies To Kyle Richardson M.D.
--- NOTE | 2017-08-28 13:09 | Hospitalist Progress Note ---
Hospitalist Progress Note Date of Service Aug 28, 2017. Assessment and Plan Patient called at home that result of culture was tetracycline sensitive MRSA and that she should take 4 more days of doxy for a total of two weeks of therapy per pharmacy recommendation. Pharmacy to call in script. Patient verbalized understanding
--- NOTE | 2017-08-28 15:09 | Pharmacy Progress Note ---
ED Pharmacist Culture FollowUp Date of Service: Aug 28, 2017. Patient discharged from the hospital yesterday with prescription for doxycycline given cellulitis of the thumb. As this has resulted as MRSA, I contacted the provider, Maritza Polanco who agreed that a total 14 day course of doxycycline would be appropriate. The provider therefore contacted the patient and called in an additional 4 days of doxycycline. The culture also grew GBBS for which it appears the provider does not want any additional coverage.
[2017-08-29] MEDS ORDERED: FIDA1TAB PO (10:23)
== END 2017-08-27 15:00 | disposition home or self-care (01) | DRG 603 ==
LOC: C.EDB 21:44 → C.MS2W 23:54 → ENRESERV 08-26 00:41 → OBSVTOIN 08-26 12:38
PROVIDERS: ADMIT Internal Medicine; ATTEND Hospitalist
DX: L03.011 Cellulitis of right finger (principal); B37.81 Candidal esophagitis; B00.89 Other herpesviral infection; Z83.3 Family history of diabetes mellitus; F32.9 Major depressive disorder, single episode, unspecified; K31.84 Gastroparesis; Z86.718 Personal history of other venous thrombosis and embolism; Z86.14 Personal history of Methicillin resistant Staphylococcus aureus infection; E03.9 Hypothyroidism, unspecified; D70.9 Neutropenia, unspecified; D64.9 Anemia, unspecified; Z96.652 Presence of left artificial knee joint; Z88.2 Allergy status to sulfonamides